=== PATIENT | female | born 1985 | race American Indian/Alaskan Native ===

== ENCOUNTER 2018-01-01 12:12 | Emergency (ER) | payer MEDICAID, OTHER ==
[2018-01-01] MEDS ORDERED: CATAPRES PO ONE (13:19)
--- NOTE | 2018-01-01 13:21 | Emergency Department Report ---
Blank Doc - Documentation Documentation: Patient is a 32-year-old female who took a tests 4 days ago was positive at home who is experiencing some vaginal spotting. Patient has some pressure sensation in his suprapubic region. Patient states bleeding is just at the level spotting and this been no clots present. Patient denies any fevers chills nausea vomiting at this time. Patient also has a history of hypertension and does not take meds at this time. Patient is denying shortness of breath chest pain headache or focal neurological deficit. Patient was given Catapres for blood pressure also have a beta Quant ultrasou and ABO Rh done. Nd
[2018-01-01 14:35] LABS: Bacteria,Urine 1+ /HPF (Negative); Bilirubin,Urine NEG (Negative); Blood,Urine LG (Negative); Color,Urine Yellow (Yellow); Mucus,Urine 3+ /HPF; Urobilinogen,Urine < 2.0 mg/dL (<2.0)
--- NOTE | 2018-01-01 17:25 | Emergency Department Report ---
ED Female HPI - General Chief complaint: Vaginal Bleeding Stated complaint: POSSIBLE MISCARRIAGE Time Seen by Provider: 01/01/18 12:40 Source: patient Mode of arrival: Ambulatory Limitations: No Limitations - History of Present Illness Initial comments: Patient is a 32-year-old female who took a tests 4 days ago was positive at home who is experiencing some vaginal spotting. Patient has some pressure sensation in his suprapubic region. Patient states bleeding is just at the level spotting and this been no clots present. Patient denies any fevers chills nausea vomiting at this time. Patient also has a history of hypertension and does not take meds at this time. Patient is denying shortness of breath chest pain or headache. Pain to lower abdomen as 7 out of 10 and pressure. Patient said that she calls my [facility] this morning and they told her to did not have an appointment until January. She says she had an episode of bleeding and this morning at 3 AM but since she has not seen any of the same bleeding in but when she wipes she sees small amount of blood on the paper. Her blood pressure is elevated at 192/118 and she has a history of high blood pressure and reports that she is on lisinopril and HCTZ. She did not take her medication and she reports that she is hungry to swear blood pressures is elevated. She denies any blurred vision, headache, nausea vomiting, dizziness, back pain. Denies being concerned for STD MD Complaint: vaginal bleeding, pelvic pain -: This morning Location: suprapubic Radiation: non-radiating Severity: severe Severity scale (0 -10): 7 Quality: cramping, other (pressure) Consistency: intermittent Improves with: none Worsens with: none Are you Now?: Yes Last Menstrual Period: 11/14/17 EDC: 08/21/18 Associated Symptoms: vaginal bleeding, abdominal pain, other (elevated blood pressure). denies: vaginal discharge, nausea/vomiting, fever/chills, headaches , loss of appetite, dysuria, hematuria, rash, seizure, shortness of breath, syncope, weakness - Related Data Sexually active: Yes : 6 Para: 2 A: 3 Previous Rx's Medication Instructions Recorded Last Taken Type Naproxen [Naprosyn] 500 mg PO BID #30 tablet 11/10/13 Unknown Rx methOCARBAMOL [Robaxin] 500 mg PO BID #30 tab 11/10/13 Unknown Rx traMADol [Ultram 50 MG tab] 50 mg PO Q6HR PRN #20 tablet 11/10/13 Unknown Rx Pnv95/Ferrous Fumarate/FA 1 each PO QDAY #30 tablet 12/09/14 Unknown Rx [ Vitamins] metroNIDAZOLE [Flagyl] 500 mg PO BID #14 tablet 12/09/14 Unknown Rx NIFEdipine XL [Procardia Xl] 60 mg PO QDAY 30 Days #30 tablet 01/01/18 Unknown Rx Vit,Calc76/Iron/Folic 1 each PO QDAY 30 Days #30 tablet 01/01/18 Unknown Rx [Pnv 29-1 Tablet] Allergies Allergy/AdvReac Type Severity Reaction Status Date / Time No Known Allergies Allergy Unverified 11/10/13 16:10 ED Review of Systems ROS: Stated complaint: POSSIBLE MISCARRIAGE Other details as noted in HPI Constitutional: denies: chills, fever Eyes: denies: eye pain, vision change ENT: denies: ear pain, throat pain, congestion Respiratory: denies: cough, shortness of breath, SOB with exertion, SOB at rest , stridor, wheezing Cardiovascular: denies: chest pain, palpitations, dyspnea on exertion, edema, syncope, paroxysmal nocturnal dyspnea Gastrointestinal: abdominal pain. denies: nausea, vomiting, diarrhea, constipation, hematemesis, melena, hematochezia Genitourinary: other (vaginal spotting). denies: urgency, dysuria, frequency, hematuria, discharge, dyspareunia Musculoskeletal: denies: back pain, joint swelling, arthralgia, myalgia Skin: denies: rash, lesions Neurological: denies: headache, weakness, numbness, paresthesias, confusion, abnormal gait, vertigo ED Past Medical Hx - Past Medical History Previous Medical History?: Yes Hx Hypertension: Yes - Surgical History Past Surgical History?: No - Family History Family history: hypertension - Social History Smoking Status: Current Every Day Smoker Substance Use Type: None - Medications Home Medications: Home Medications Medication Instructions Recorded Confirmed Last Taken Type Naproxen [Naprosyn] 500 mg PO BID #30 tablet 11/10/13 Unknown Rx methOCARBAMOL [Robaxin] 500 mg PO BID #30 tab 11/10/13 Unknown Rx traMADol [Ultram 50 MG tab] 50 mg PO Q6HR PRN #20 tablet 11/10/13 Unknown Rx Pnv95/Ferrous Fumarate/FA 1 each PO QDAY #30 tablet 12/09/14 Unknown Rx [ Vitamins] metroNIDAZOLE [Flagyl] 500 mg PO BID #14 tablet 12/09/14 Unknown Rx NIFEdipine XL [Procardia Xl] 60 mg PO QDAY 30 Days #30 tablet 01/01/18 Unknown Rx Vit,Calc76/Iron/Folic 1 each PO QDAY 30 Days #30 tablet 01/01/18 Unknown Rx [Pnv 29-1 Tablet] ED Physical Exam - General Limitations: No Limitations General appearance: alert, in no apparent distress - Head Head exam: Present: atraumatic, normocephalic, normal inspection, other (normal exam) - Eye Eye exam: Present: normal appearance, PERRL, EOMI. Absent: nystagmus Pupils: Present: normal accommodation - ENT ENT exam: Present: normal exam, normal orophraynx, mucous membranes moist, TM's normal bilaterally, normal external ear exam - Neck Neck exam: Present: normal inspection, full ROM, other (no C-spine tenderness and no bruit). Absent: tenderness, meningismus, lymphadenopathy - Respiratory Respiratory exam: Present: normal lung sounds bilaterally. Absent: respiratory distress, wheezes, chest wall tenderness, accessory muscle use - Cardiovascular Cardiovascular Exam: Present: regular rate, normal rhythm, normal heart sounds, other (blood pressure elevated at 192/118). Absent: systolic murmur, diastolic murmur - GI/Abdominal GI/Abdominal exam: Present: soft, normal bowel sounds. Absent: distended, tenderness, guarding, rebound, rigid, organomegaly, mass, bruit, pulsatile mass , hernia - Extremities Exam Extremities exam: Present: normal inspection, full ROM, normal capillary refill , other (no clubbing, cyanosis or edema. +2 pulses all extremities and no neurovascular compromise). Absent: tenderness, pedal edema, joint swelling, calf tenderness - Back Exam Back exam: Present: normal inspection, full ROM, other (ambulates without any difficulties). Absent: tenderness, CVA tenderness (R), CVA tenderness (L), muscle spasm, paraspinal tenderness, vertebral tenderness, rash noted - Neurological Exam Neurological exam: Present: alert, oriented X3, normal gait, reflexes normal. Absent: motor sensory deficit - Expanded Neurological Exam Expanded Neurological exam: Absent: innattentive, memory loss-remote event, memory loss- recent event, ataxia, receptive aphasia, expressive aphasia, total aphasia, tremor, protecting the airway Patient oriented to: Present: person, place, time Speech: Present: fluid speech Cranial nerves: EOM's Intact: Normal, Gag Reflex: Normal, Tongue Deviation: Normal, Nystagmus: Normal, Facial Sensation: Normal Cerebellar function: Romberg: Normal Upper motor neuron: Pronator Drift: Normal, Sensory Extinction: Normal Sensory exam: Upper Extremity Light Touch: Normal, Upper Extremity Temperature: Normal, UE 2 Point Discrimination: Normal, Lower Extremity Light Touch: Normal, Lower Extremity Temperature: Normal, LE 2 Point Discrimination: Normal Motor strength exam: RUE: 5, LUE: 5, RLE: 5, LLE: 5 Best Eye Response (Raymond): (4) open spontaneously Best Motor Response (Bg): (6) obeys commands Best Verbal Response (Bg): (5) oriented Bg Total: 15 - Psychiatric Psychiatric exam: Present: normal affect, normal mood - Skin Skin exam: Present: warm, dry, intact, normal color. Absent: rash ED Course Vital Signs 01/01/18 01/01/18 01/01/18 12:22 13:28 17:59 Temperature 98.4 F 98.4 F Pulse Rate 86 86 94 H Respiratory 16 20 Rate Blood Pressure 192/118 192/118 Blood Pressure 193/109 [Left] O2 Sat by Pulse 99 100 Oximetry Vital Signs 01/01/18 01/01/18 01/01/18 12:22 13:28 17:59 Temperature 98.4 F 98.4 F Pulse Rate 86 86 94 H Respiratory 16 20 Rate Blood Pressure 192/118 192/118 Blood Pressure 193/109 [Left] O2 Sat by Pulse 99 100 Oximetry 01/01/18 18:49 Temperature Pulse Rate Respiratory 18 Rate Blood Pressure Blood Pressure 184/96 [Left] O2 Sat by Pulse 99 Oximetry - Reevaluation(s) Reevaluation #1: 01/01/18 18:34 Patient received clonidine 0.2 mg emergency room her blood pressure is now better. No change in neurological status. I discussed her ultrasound with her ED Medical Decision Making - Radiology Data Radiology results: report reviewed Findings [facility] [address] [place] [address] Ultrasound Report Signed Patient: BRENDON CROWLEY MR#: [id number] : 1985 Acct:[id number] Age/Sex: 32 / F ADM Date: 01/01/18 Loc: ED Attending Dr: Ultrasound transvaginal and transabdominal less than 14 weeks OB FINAL REPORT EXAM: US OB TRANSVAGINAL HISTORY: preg with vag bleeding TECHNIQUE: Transabdominal and transvaginal sonography of the pelvis. PRIORS: None. FINDINGS: There is a single, intrauterine containing a yolk sac, but pole is not confidently identified at this time. Mean sac diameter is 11.1 mm corresponding to an ultrasound estimated gestational age of 5 weeks 6 days and ultrasound estimated date of delivery of 28 August 2018. Probable small, subchorionic hemorrhage incidentally noted. Remainder of uterus and adnexa are grossly unremarkable. IMPRESSION: 1. Intrauterine of uncertain viability. Correlation with serial beta-hCG levels and follow-up ultrasound may help in further evaluation. Transcribed By: [facility] Dictated By: KARMA PERDUE MD Electronically Authenticated By: KARMA PERDUE MD Signed Date/Time: 01/01/181751 DD/ 51 TD/TT: 01/01/181751 - Medical Decision Making ED course: Dr. Pendleton screen patient and wrote for clonidine for her blood pressure and patient was managed with Dr. Pendleton who I spoke with regarding her blood pressure and decided to change her to Procardia since she is . This is a 32-year-old female here reporting that she is been having vaginal bleeding since this morning in at 3 AM that has subsided now she is scan tomorrow will wipe. She said she had vaginal bleeding times one and then scan. Denies any clot. She is reporting pain to her lower abdomen that is pressure and crampy. Patient is 6 para 2, M1 2. Patient also has high blood pressure and has not taken her blood pressure medication this morning he was 192/118 in triage and she relates it to her being hungry. Patient is neurologically , Patient was seen and examined by myself. She had OB transabdominal pelvic and transvaginal less than 14 weeks which was dictated by radiologist and report shows Intrauterine of uncertain viability. Probably small subchorionic hemorrhage. Correlation with serial beta-hCG levels and follow-up ultrasound may help in further evaluation. Uterus and adnexa normal. . Positive quant UA showing that she has large blood and 1+ bacteria with no white cells. I will send urine culture. . This wasexplained to patient and she voiced understanding. I told I'll refer her to [facility] that she should call later to schedule an appointment if she cannot get in with my [facility]. I also told her that she needs to have a repeat ultrasound and hormone test in 3 days to return to the emergency room and she voiced understanding. Patient blood pressure elevated and she received clonidine 0.2 mg which her blood pressure is not better and we discussed switching her blood pressure medication from lisinopril HCTZ to Procardia XL as this is what she takes when she is .. A/P 1: Threatened miscarriage-patient referred to my [facility] and I told her to refrain from doing any strenuous activity including sexual activity. Patient will be started on vitamin . See ultrasound results above. Viable single intrauterine as described. Also with left ovarian cyst. 2-Vaginal bleeding-A she reports that this is very light and now only when she wipes. So better 3:abdominal cramping : Better. Patient with nontender abdomen 4: Patient with asymptomatic bacteriuria and she says she is not concerned for STD. Urine culture sent off. 5: Elevated blood pressure with history of hypertension.-Patient will be started on Procardia XL. She was given clonidine 0.2 mg and her blood pressure went down and I discussed with her that is very important that she takes her blood pressure medication as elevated blood pressure can cause her to have preeclampsia, eclampsia during and lead to heart attack, stroke or . I discussed that she needs to keep a log of her blood pressure and take along with her to her [facility] office for evaluation. Patient educated on and also threatened miscarriage. Educated on medication importance of taking vitamins and importance of care. Hypertension in , Educated on what signs and symptoms to look for in having a miscarriage and if she has any increase in her vaginal bleeding she is to return to the emergency room. Educated on increasing her fluid intake , she voiced understanding. Patient discharged home in stable condition with her family. Vital signs as stated she is a febrile. She is nontoxic in appearance. Referred to my [facility] to see on 01/04/2018. Discharge home a prescription for nasal vitamin and Procardia and to discontinue lisinopril HCTZ. Patient also to return on 05/2018 to emergency room for repeat ultrasound and hCG. - Differential Diagnosis ectopic , threatened miscarriage, UTI Critical care attestation.: If time is entered above; I have spent that time in minutes in the direct care of this critically ill patient, excluding procedure time. ED Disposition Clinical Impression: Threatened miscarriage in early , Abdominal pain during intrauterine , Elevated blood pressure reading with diagnosis of hypertension, Vaginal bleeding before 22 weeks gestation, Asymptomatic bacteriuria Disposition: DC- TO HOME OR SELFCARE Is pt being admited?: No Does the pt Need Aspirin: No Condition: Stable Instructions: Hypertension (ED), Threatened Miscarriage (ED), Abdominal Pain in (ED) Additional Instructions: Please follow up with your [facility] office in 3 days and if he cannot get in to OB /[facility] since his first visit he can also call [facility] to see if they have earlier appointment. Return to the emergency room on 12/30/2017 for repeat blood hormone tests and also ultrasound. If she experienced, increase in bleeding, abdominal pain, headache, shortness of breath, chest pain nausea vomiting, elevated blood pressure, dizziness. Physician please return to emergency room [facility] Please stop lisinopril and start Procardia XL Keep a log of your blood pressure and take to [facility] office visit for evaluation Prescriptions: NIFEdipine XL [Procardia Xl] 60 mg PO QDAY 30 Days #30 tablet Vit,Calc76/Iron/Folic [Pnv 29-1 Tablet] 1 each PO QDAY 30 Days #30 tablet Referrals: [facility] [Primary Care Provider] - 01/04/18 [facility] [Provider Group] - 01/04/18 [facility] [Provider Group] - 01/04/18 Forms: Work/School Release Form(ED)
--- NOTE | 2018-01-01 17:56 | Ultrasound Report ---
FINAL REPORT EXAM: US OB TRANSVAGINAL HISTORY: preg with vag bleeding TECHNIQUE: Transabdominal and transvaginal sonography of the pelvis. PRIORS: None. FINDINGS: There is a single, intrauterine containing a yolk sac, but pole is not confidently identified at this time. Mean sac diameter is 11.1 mm corresponding to an ultrasound estimated gestational age of 5 weeks 6 days and ultrasound estimated date of delivery of 28 August 2018. Probable small, subchorionic hemorrhage incidentally noted. Remainder of uterus and adnexa are grossly unremarkable. IMPRESSION: 1. Intrauterine of uncertain viability. Correlation with serial beta-hCG levels and follow-up ultrasound may help in further evaluation.
--- NOTE | 2018-01-01 17:57 | Ultrasound Report ---
FINAL REPORT EXAM: US OB < = 14 WEEKS FETUS HISTORY: preg with vag bleeding TECHNIQUE: Transabdominal and transvaginal sonography of the pelvis. PRIORS: None. FINDINGS: There is a single, intrauterine containing a yolk sac, but pole is not confidently identified at this time. Mean sac diameter is 11.1 mm corresponding to an ultrasound estimated gestational age of 5 weeks 6 days and ultrasound estimated date of delivery of 28 August 2018. Probable small, subchorionic hemorrhage incidentally noted. Remainder of uterus and adnexa are grossly unremarkable. IMPRESSION: 1. Intrauterine of uncertain viability. Correlation with serial beta-hCG levels and follow-up ultrasound may help in further evaluation.
[2018-01-01 18:51] VITALS: BP 184/96
== END 2018-01-01 19:08 | disposition home or self-care (01) ==
LOC: ED 12:12
DX: O20.0 Threatened abortion (principal); R82.71 Bacteriuria; I10 Essential (primary) hypertension; R10.9 Unspecified abdominal pain; F17.200 Nicotine dependence, unspecified, uncomplicated; Z3A.22 22 weeks gestation of pregnancy
CPT/HCPCS: 36415; 76801; 76817; 81001; 84702; 86900; 86901

== ENCOUNTER 2020-04-13 12:33 | Inpatient (IN) | payer OTHER ==
[2020-04-13 14:51] LABS: Hematocrit 32.7 % (30.3-42.9); Hemoglobin 10.7 gm/dl (10.1-14.3); Mean Corpuscular HGB Conc 33 % (30-34); Mean Corpuscular Volume 77 fl (79-97); Platelet Count 371 K/mm3 (140-440); Red Blood Count 4.23 M/mm3 (3.65-5.03); Red Cell Distribution Width 16.3 % (13.2-15.2)
[2020-04-13 14:58] LABS: Bilirubin,Urine NEG (Negative); Blood,Urine NEG (Negative); Color,Urine Yellow (Yellow); Mucus,Urine 2+ /HPF; Urobilinogen,Urine < 2.0 mg/dL (<2.0)
[2020-04-13 15:12] LABS: Alanine Aminotransferase 13 units/L (7-56)
[2020-04-13] MEDS ORDERED: MAGNESIUM SULFATE 4 GM/100 ML BAG IV ONE (17:22)
[2020-04-13] MEDS ORDERED: ACETAMINOPHEN 500 MG TAB PO PRN (17:25)
--- NOTE | 2020-04-13 17:54 | History and Physical Report ---
History of Present Illness Date of examination: 04/13/20 (Pt with elevated blood pressure at [facility] appointment) Date of admission: 04/13/2020 Chief complaint: Was sent from [facility] office by Dr. Sparks d/t elevated blood pressures. Her blood pressure ranges during [facility] visit were 150-160's/90's. History of present illness: Past History : 7 Term Births: 2 Premature Births: 0 Living Children: 2 Para: 2 Mult. Births: 0 Prev : 0 Prev. attempt? 0 Aborta: 1 Elect. Ab: 3 Spont. Ab: 1 # 1 Delivery date: 05/01/2006 Weeks Gestation: 37 labor: no Delivery type: Hours of labor: 10 Anesthesia type: epidural Delivery location: [facility] Sex: Male weight: [id number] Name: Cherry Comments: Induced secondary to hypertension and short # 2 Delivery date: 04/02 Delivery type: EAB # 3 Delivery date: 02/01/2010 Weeks Gestation: 40 Delivery type: Vaginal Hours of labor: 9 Anesthesia type: epidural Delivery location: [facility] Infant Sex: male weight: 7.50 Name: Lilo Comments: Meconium Past Medical History: Reviewed history from 08/27/2009 and no changes required: Asthma Hypertension Past Surgical History: Reviewed history from 08/27/2009 and no changes required: negative Past Medical History Anesthesia Complications: negative Anemia: negative Autoimmune Disorder: negative Bleeding Disorder: negative Blood Transfusions: negative Breast Disease: negative Diabetes: negative Heart Disease: negative Hypertension: positive, On Labetalol 100mg twice daily Hepatitis/Liver Disease: negative Kidney Disease/UTI: negative Neurologic/Epilepsy/Migraines: negative Phlebitis/Varicosities: negative Psychiatric: negative Pulmonary Disease/Asthma: negative Thyroid Disease: negative Hospitalizations: negative Surgery (Non-body component engineer): negative Abnormal PAP: negative PANKAJ Exposure: negative Infertility: negative Uterine Anomaly: negative Uterine Surgery (not C/S): negative Other Gynecologic Problems: negative Social Hx: Marital Status: Single Children: 2 Occupation: unemployed Infection History Hx of STD: none HIV Risk Eval: low risk Hepatitis B Risk Eval: low risk Personal hx. of genital herpes: no Partner hx. of genital herpes: no Rash, Viral, or Febrile illness since last LMP? no Varicella/Chicken Pox Status: Previous Disease TB Risk: no Genetic History ADVANCED MATERNAL AGE Congenital Heart Defect: Mom: no Dad: no Dannielle Disease: Mom: no Dad: no Thalassemia Mom: no Dad: no Neural Tube Defect Mom: no Dad: no Down's Syndrome Mom: no Dad: no Desean-Sachs Mom: no Dad: no Sickle Cell Disease/Trait Mom: no Dad: no Hemophilia Mom: no Dad: no Muscular Dystrophy Mom: no Dad: no Cystic Fibrosis Mom: no Dad: no Kerry Chorea Mom: no Dad: no Mental Retardation Mom: no Dad: no Fragile X Mom: no Dad: no Other Genetic/Chromosomal Disorder Mom: no Dad: no Child w/other defect Mom: no Dad: no Enviromental Exposures Xray Exposure: no Medication, drug, or alcohol use since LMP: no Chemical/Other Exposure: no Exposure to Cat Liter: no Hx of Parvovirus (Fifth Disease): no Occupational Exposure to Children: none Active Medications: LABETALOL HCL 100 MG ORAL TABLET (LABETALOL HCL) Current Allergies: * NKDA (Critical) Past History Past Medical History: asthma, hypertension Past Surgical History: no surgical history Family/Genetic History: none Social history: single - Obstetrical History Expected Date of Delivery: 05/27/20 Actual Gestation: 33 Week(s) 6 Day(s) : 7 Para: 2 Hx # Term Pregnancies: 2 Number of Pregnancies: 0 Spontaneous Abortions: 1 Induced : 3 Number of Living Children: 2 Medications and Allergies Allergies Allergy/AdvReac Type Severity Reaction Status Date / Time No Known Allergies Allergy Unverified 11/10/13 16:10 Home Medications Medication Instructions Recorded Confirmed Last Taken Type Naproxen [Naprosyn] 500 mg PO BID #30 tablet 11/10/13 Unknown Rx methOCARBAMOL [Robaxin] 500 mg PO BID #30 tab 11/10/13 Unknown Rx traMADoL [Ultram 50 MG tab] 50 mg PO Q6HR PRN #20 tablet 11/10/13 Unknown Rx Pnv95/Ferrous Fumarate/FA 1 each PO QDAY #30 tablet 12/09/14 Unknown Rx [ Vitamins] metroNIDAZOLE [Flagyl] 500 mg PO BID #14 tablet 12/09/14 Unknown Rx NIFEdipine XL [Procardia Xl] 60 mg PO QDAY 30 Days #30 tablet 01/01/18 Unknown Rx Vit,Calc76/Iron/Folic 1 each PO QDAY 30 Days #30 tablet 01/01/18 Unknown Rx [Pnv 29-1 Tablet] Active Meds: Active Medications Acetaminophen (Tylenol) 1,000 mg PO Q6H PRN PRN Reason: Pain, Mild (1-3) Betamethasone Acet/Betameth SodPhos (Celestone Soluspan) 12 mg IM Q24H BANG Stop: 04/14/20 22:01 Lactated Ringer's (Lactated Ringers) 1,000 mls @ 125 mls/hr IV DIRECT BANG Magnesium Sulfate (Magnesium Sulfate 40gm/1000ml) 40 gm in 1,000 mls @ 50 mls/hr IV DIRECT BANG Labetalol HCl (Labetalol) 100 mg PO BID BANG Review of Systems All systems: negative - Vital Signs Vital signs: Vital Signs Temp Pulse Resp BP 98.7 F 100 H 18 145/81 04/13/20 13:14 04/13/20 13:14 04/13/20 13:14 04/13/20 13:14 Temp Pulse Resp BP Pulse Ox 98.7 F 105 H 18 154/87 92 04/13/20 13:14 04/13/20 17:03 04/13/20 13:14 04/13/20 17:03 04/13/20 14:17 Pt with c/o a slight HICKS. Denies blurred vision, spots before her eyes, upper abdominal pain, shortness of breath, or chest pain. - Physical Exam Breasts: Positive: deferred Cardiovascular: Regular rate Lungs: Positive: Normal air movement Abdomen: Positive: normal appearance, soft Genitourinary (Female): Positive: normal external genitalia, normal perenium Vulva: both: normal Vagina: Positive: normal moisture Cervix: Negative: lesion, discharge Uterus: Positive: normal size, normal contour Adnexa: both: normal Anus/Rectum: Positive: normal perianal skin, heme negative. Negative: rectal mass, hemorrhoids Extremities: Positive: normal Deep Tendon Reflex Grade: Normal +2 - Obstetrical FHR: auscultation normal, category 1 Uterine Contraction Monitor Mode: External Uterine Contraction Pattern: Absent Uterine Tone Measurement Phase: Resting Results Result Diagrams: 04/13/20 14:33 04/13/20 14:33 Abnormal lab results 04/13/20 04/13/20 Range/Units 14:33 14:33 MCV 77 L (79-97) fl MCH 25 L (28-32) pg RDW 16.3 H (13.2-15.2) % Creatinine 0.3 L (0.6-1.2) mg/dL Lactate Dehydrogenase 307 H (91-180) units/L All other labs normal. GBS UNKNOWN HBsAg Screen Negative Negative *1 RPR Non Reactive Non Reactive *2 Rubella Antibodies, IgG 1.16 index Immune >0.99 *3 Non-immune <0.90 Equivocal 0.90 - 0.99 Immune >0.99 ABO Grouping B *4 Rh Factor Positive *5 Please note: Prior records for this patient's ABO / Rh type are not available for additional verification. Antibody Screen Negative Negative *6 WBC [H] 12.4 x10E3/uL 3.4-10.8 *7 RBC 5.05 x10E6/uL 3.77-5.28 *8 Hemoglobin 12.3 g/dL 11.1-15.9 *9 Hematocrit 39.8 % 34.0-46.6 *10 MCV 79 fL 79-97 *11 MCH [L] 24.4 pg 26.6-33.0 *12 MCHC [L] 30.9 g/dL 31.5-35.7 *13 RDW [H] 17.1 % 11.7-15.4 *14 Platelets [H] 470 x10E3/uL 150-450 *15 Neutrophils 67 % Not Estab. *16 Lymphs 24 % Not Estab. *17 Monocytes 7 % Not Estab. *18 Eos 2 % Not Estab. *19 Basos 0 % Not Estab. *20 ! Immature Cells <No Reported Value> *21 Neutrophils (Absolute) [H] 8.3 x10E3/uL 1.4-7.0 *22 Lymphs (Absolute) 3.0 x10E3/uL 0.7-3.1 *23 Monocytes(Absolute) 0.8 x10E3/uL 0.1-0.9 *24 Eos (Absolute) 0.2 x10E3/uL 0.0-0.4 *25 Baso (Absolute) 0.0 x10E3/uL 0.0-0.2 *26 ! Immature Granulocytes 0 % Not Estab. *27 ! Immature Grans (Abs) 0.0 x10E3/uL 0.0-0.1 *28 ! NRBC <No Reported Value> *29 Hematology Comments: <No Reported Value> *30 Tests: (2) Ct, Ng, Trich vag by ILEANA ([id number]) Chlamydia by ILEANA Negative Negative *31 Gonococcus by ILEANA Negative Negative *32 Trich vag by ILEANA Negative Negative *33 Tests: (3) HIV Ag/Ab with Reflex ([id number]) HIV Screen 4th Generation wRfx Non Reactive Non Reactive *34 Tests: (4) HCV Ab w/Rflx to Verification ([id number]) ! HCV Ab <0.1 s/co ratio 0.0-0.9 *35 Tests: (5) Comment: ([id number]) ! Comment: SPRCS *36 Non reactive HCV antibody screen is consistent with no HCV infection, unless recent infection is suspected or other evidence exists to indicate HCV infection. Tests: (6) Urine Culture, Routine ([id number]) Urine Culture, Routine Final report *37 Tests: (7) Result ([id number]) ! Result 1 No growth *38 Assessment and Plan Pt is a 34 y.o. @ 33.6 wks, sent from the [facility], By Dr. Sparks, office d/t blood pressures during visit ranging from 150-160's/90/s. Upon admission to triage her blood pressures ranged from 140's-160s/80-90's. Consulted with Dr. Chandler. Plan to admit to obs to collect a 24 hour urine, initiate magnesium sulfate, insert Ocrtez catheter to accurately watch urine output, increase PO Labetalol from 100mg to 200mg, continue to monitor blood pressures, and routine consult to [facility] to evaluate patient during hospital stay. Call placed to on-call [facility] answering service. - Patient Problems (1) Hypertension complicating in third trimester Onset Date: ~04/13/20 Current Visit: Yes Status: Acute Plan to address problem: Labetalol increased from 100mg to 200mg. Initiate magnesium sulfate. Continue to monitor blood pressures, intake and output. Routine consult to [facility] to come and evaluate pt during admission. (2) with 33 completed weeks gestation Onset Date: ~04/13/20 Current Visit: Yes Status: Acute Plan to address problem: Continue to monitor status through EFM.
[2020-04-13] MEDS ORDERED: MAGNESIUM SULFATE 40GM/1000ML 40 GM/1,000 ML BAG IV SCH (18:00)
[2020-04-13] MEDS: LACTATED RINGERS 1,000 ML IV SCH (20:00)
[2020-04-13] MEDS: BETAMET ACET/BETAMET NA PH 6 MG/ML INJ 5 ML MDV IM SCH (22:15)
[2020-04-14] MEDS ORDERED: diphenhydrAMINE 50 MG CAP PO PRN (00:42)
--- NOTE | 2020-04-14 09:23 | Progress Note ---
<SHANNAN TRIPLETT - Last Filed: 04/14/20 09:15> Assessment and Plan Pt resting No c/o HICKS, blurred vision, chest pain. Pt voices just being anxious @ being here. Reviewed POC Pt voices understanding and agreement with plan. Spoke with Dr Chamorro, he will see pt today. MGSO4 2gm/hr continues, 24hr urine collection complete @ 1700. BP 160-140/90-60, mild tachycardia 100-90, afebile. latest mag level 4.0. Lungs clear, non labored breathing. Will continue POC. Dr Joe aware of pt. Subjective - Subjective Date of service: 04/14/20 (pt "I just getting antsy.") Principal diagnosis: IUP 33w6d with PreE MGSO4 Collecting 24hr urine Patient reports: movement normal Objective - Vital Signs Vital Signs: Vital Signs - 12hr 04/13/20 04/13/20 04/13/20 21:32 22:02 22:15 Temperature Pulse Rate 88 93 H 93 H Respiratory Rate Blood Pressure 148/79 142/65 142/65 04/13/20 04/13/20 04/13/20 22:56 23:02 23:15 Temperature 98.3 F Pulse Rate 94 H 97 H Respiratory 18 Rate Blood Pressure 169/77 162/67 04/13/20 04/14/20 04/14/20 23:32 00:03 01:02 Temperature Pulse Rate 98 H 89 92 H Respiratory Rate Blood Pressure 145/71 141/78 139/78 04/14/20 04/14/20 04/14/20 01:15 01:32 02:02 Temperature Pulse Rate 97 H 90 Respiratory 18 Rate Blood Pressure 136/68 149/81 04/14/20 04/14/20 04/14/20 02:32 03:02 03:15 Temperature 98.3 F Pulse Rate 92 H 88 Respiratory 16 Rate Blood Pressure 144/67 161/79 04/14/20 04/14/20 04/14/20 03:32 04:04 04:32 Temperature Pulse Rate 90 97 H 100 H Respiratory Rate Blood Pressure 145/79 131/80 138/68 04/14/20 04/14/20 04/14/20 05:03 05:15 05:33 Temperature Pulse Rate 87 88 Respiratory 12 Rate Blood Pressure 144/79 167/78 04/14/20 04/14/2004/14/20 06:02 06:32 07:02 Temperature Pulse Rate 87 93 H 95 H Respiratory Rate Blood Pressure 134/70 126/59 132/62 04/14/20 04/14/20 04/14/20 07:32 08:02 08:32 Temperature Pulse Rate 102 H 99 H 97 H Respiratory Rate Blood Pressure 115/67 138/70 172/91 04/14/20 04/14/20 09:02 09:11 Temperature Pulse Rate 94 H 95 H Respiratory Rate Blood Pressure 181/87 153/85 - Exam Breasts: deferred Cardiovascular: Regular rate Lungs: Clear to auscultation Abdomen: Present: normal appearance, soft. Absent: distention, tenderness Uterus: Present: normal FHR: auscultation normal, category 1 (difficult tracing) Uterine Contraction Monitor Mode: External Uterine Contraction Pattern: Absent Uterine Tone Measurement Phase: Resting Extremities: edema Deep Tendon Reflex Grade: Normal but brisk +3 - Labs Labs: Abnormal Labs 04/13/20 04/13/20 04/13/20 14:33 14:33 18:42 MCV 77 L MCH 25 L RDW 16.3 H Creatinine 0.3 L Magnesium 2.80 H Lactate Dehydrogenase 307 H 04/14/20 04/14/20 00:27 05:38 MCV MCH RDW Creatinine Magnesium 3.50 H 4.00 H Lactate Dehydrogenase Laboratory Results - last 24 hr 04/13/20 04/13/20 04/13/20 14:33 14:33 18:42 WBC 10.5 RBC 4.23 Hgb 10.7 Hct 32.7 MCV 77 L MCH 25 L MCHC 33 RDW 16.3 H Plt Count 371 Creatinine 0.3 L Estimated GFR > 60 Uric Acid 4.0 Magnesium 2.80 H AST 22 ALT 13 Lactate Dehydrogenase 307 H Urine Color Urine Turbidity Urine pH Ur Specific [place] Urine Protein Urine Glucose (UA) Urine Ketones Urine Blood Urine Nitrite Urine Bilirubin Urine Urobilinogen Ur Leukocyte Esterase Urine WBC (Auto) Urine RBC (Auto) U Epithel Cells (Auto) Urine Mucus 04/13/20 04/14/20 04/14/20 Unknown 00:27 05:38 WBC RBC Hgb Hct MCV MCH MCHC RDW Plt Count Creatinine Estimated GFR Uric Acid Magnesium 3.50 H 4.00 H AST ALT Lactate Dehydrogenase Urine Color Yellow Urine Turbidity Clear Urine pH 6.0 Ur Specific [place] 1.023 Urine Protein 30 mg/dl Urine Glucose (UA) Neg Urine Ketones Neg Urine Blood Neg Urine Nitrite Neg Urine Bilirubin Neg Urine Urobilinogen < 2.0 Ur Leukocyte Esterase Neg Urine WBC (Auto) 3.0 Urine RBC (Auto) 1.0 U Epithel Cells (Auto) 3.0 Urine Mucus 2+ <BONNIEBRANNON D - Last Filed: 04/14/20 11:44> Assessment and Plan Resting in bed, no complaints. BP's much better. Plan of care discussed with patient and visit, will consider d/c home in am if she remains stable. She voiced understanding and agrees with plan of care Objective - Vital Signs Vital Signs: Vital Signs - 12hr 04/14/20 04/14/20 04/14/20 00:03 01:02 01:15 Temperature Pulse Rate 89 92 H Respiratory 18 Rate Blood Pressure 141/78 139/78 O2 Sat by Pulse Oximetry 04/14/20 04/14/20 04/14/20 01:32 02:02 02:32 Temperature Pulse Rate 97 H 90 92 H Respiratory Rate Blood Pressure 136/68 149/81 144/67 O2 Sat by Pulse Oximetry 04/14/20 04/14/20 04/14/20 03:02 03:15 03:32 Temperature 98.3 F Pulse Rate 88 90 Respiratory 16 Rate Blood Pressure 161/79 145/79 O2 Sat by Pulse Oximetry 04/14/20 04/14/20 04/14/20 04:04 04:32 05:03 Temperature Pulse Rate 97 H 100 H 87 Respiratory Rate Blood Pressure 131/80 138/68 144/79 O2 Sat by Pulse Oximetry 04/14/20 04/14/20 04/14/20 05:15 05:33 06:02 Temperature Pulse Rate 88 87 Respiratory 12 Rate Blood Pressure 167/78 134/70 O2 Sat by Pulse Oximetry 04/14/20 04/14/20 04/14/20 06:32 07:02 07:32 Temperature Pulse Rate 93 H 95 H 102 H Respiratory Rate Blood Pressure 126/59 132/62 115/67 O2 Sat by Pulse Oximetry 04/14/20 04/14/20 04/14/20 08:02 08:32 09:02 Temperature Pulse Rate 99 H 97 H 94 H Respiratory Rate Blood Pressure 138/70 172/91 181/87 O2 Sat by Pulse Oximetry 04/14/20 04/14/20 04/14/20 09:11 09:32 09:47 Temperature 98.2 F Pulse Rate 95 H 93 H Respiratory 14 Rate Blood Pressure 153/85 128/66 O2 Sat by Pulse Oximetry 04/14/20 04/14/20 04/14/20 09:51 09:54 10:02 Temperature Pulse Rate 95 H 95 H 96 H Respiratory Rate Blood Pressure 147/83 147/83 136/60 O2 Sat by Pulse Oximetry 04/14/20 04/14/20 04/14/20 10:32 10:55 10:56 Temperature Pulse Rate 96 H 97 H 58 L Respiratory Rate Blood Pressure 134/74 O2 Sat by Pulse 99 89 Oximetry 04/14/20 04/14/20 04/14/20 11:00 11:02 11:05 Temperature Pulse Rate 101 H 97 H 103 H Respiratory Rate Blood Pressure 138/82 O2 Sat by Pulse 99 100 Oximetry 04/14/20 04/14/20 04/14/20 11:10 11:15 11:20 Temperature Pulse Rate 98 H 98 H 99 H Respiratory Rate Blood Pressure O2 Sat by Pulse 97 98 97 Oximetry 04/14/20 04/14/20 04/14/20 11:25 11:30 11:32 Temperature Pulse Rate 96 H 90 92 H Respiratory Rate Blood Pressure 120/56 O2 Sat by Pulse 98 99 Oximetry 04/14/20 04/14/20 04/14/20 11:35 11:36 11:40 Temperature 98.2 F Pulse Rate 90 92 H Respiratory Rate Blood Pressure O2 Sat by Pulse 98 99 Oximetry - Labs Labs: Abnormal Labs 04/13/20 04/13/20 04/13/20 14:33 14:33 18:42 MCV 77 L MCH 25 L RDW 16.3 H Creatinine 0.3 L Magnesium 2.80 H Lactate Dehydrogenase 307 H 04/14/20 04/14/20 00:27 05:38 MCV MCH RDW Creatinine Magnesium 3.50 H 4.00 H Lactate Dehydrogenase Laboratory Results - last 24 hr 04/13/20 04/13/20 04/13/20 14:33 14:33 18:42 WBC 10.5 RBC 4.23 Hgb 10.7 Hct 32.7 MCV 77 L MCH 25 L MCHC 33 RDW 16.3 H Plt Count 371 Creatinine 0.3 L Estimated GFR > 60 Uric Acid 4.0 Magnesium 2.80 H AST 22 ALT 13 Lactate Dehydrogenase 307 H Urine Color Urine Turbidity Urine pH Ur Specific [place] Urine Protein Urine Glucose (UA) Urine Ketones Urine Blood Urine Nitrite Urine Bilirubin Urine Urobilinogen Ur Leukocyte Esterase Urine WBC (Auto) Urine RBC (Auto) U Epithel Cells (Auto) Urine Mucus 04/13/20 04/14/20 04/14/20 Unknown 00:27 05:38 WBC RBC Hgb Hct MCV MCH MCHC RDW Plt Count Creatinine Estimated GFR Uric Acid Magnesium 3.50 H 4.00 H AST ALT Lactate Dehydrogenase Urine Color Yellow Urine Turbidity Clear Urine pH 6.0 Ur Specific [place] 1.023 Urine Protein 30 mg/dl Urine Glucose (UA) Neg Urine Ketones Neg Urine Blood Neg Urine Nitrite Neg Urine Bilirubin Neg Urine Urobilinogen < 2.0 Ur Leukocyte Esterase Neg Urine WBC (Auto) 3.0 Urine RBC (Auto) 1.0 U Epithel Cells (Auto) 3.0 Urine Mucus 2+
[2020-04-14] MEDS: LACTATED RINGERS 1,000 ML IV SCH (09:43)
[2020-04-14] MEDS ORDERED: ZOLPIDEM 5 MG TAB PO PRN (18:31)
[2020-04-14 19:07] LABS: Creatinine,Urine 29.4 mg/dL (0.1-20.0)
[2020-04-14 19:11] LABS: Creatinine 24 Hour,Urine 1.8 (0.8-2.8)
[2020-04-14] MEDS: BETAMET ACET/BETAMET NA PH 6 MG/ML INJ 5 ML MDV IM SCH (22:11)
[2020-04-14] MEDS ORDERED: FAMOTIDINE 20 MG/2 ML INJ IV ONE (23:46)
--- NOTE | 2020-04-15 01:24 | Event Note ---
Date: 04/15/20 (TP 900 on 24hr urine) Pt w/o complaints. Ambulated in room most of the evening. NST reactive. BMZ completed @ 2200. Total protein 900 from 24hr urine. BP 160-130/80-60 Labetalol 200mg given @ 2200. Pt now in bed Requested her Ambien. Given
[2020-04-15] MEDS ORDERED: DEXMEDETOMIDINE 200 MCG/2 ML VIAL IV ONE (02:37)
--- NOTE | 2020-04-15 09:02 | Discharge Summary ---
Providers - Providers Date of Admission: 04/13/20 23:08 Date of discharge: 04/15/20 (Pt very excited to go home) Attending physician: ABY JEFFERSON 04/13/20 23:30 Consult to Physician [CONS] Routine Comment: Consulting Provider: BENOIT FLORES Physician Instructions: Pt known to practice. Reason For Exam: 33 wks continued elevated blood pressures, on meds Primary care physician: JULIAN OCONNELL Hospitalization Reason for admission: other (elevated BP; collect 24hr urine; BMZ) Hospital course: Patient sent from [facility] for BP control. 24 hr urine collected, TP 900. Patient received MGS0O4 x's 48 hrs and BMZ x's 2 doses. Started on labetalol 200 mg po BID. BP range 160-130/80-70, NST performed several times and all reactive. Condition at discharge: Good Disposition: DC-01 TO HOME OR SELFCARE - Discharge Diagnoses (1) Hypertension complicating in third trimester Status: Acute Comment: Follow up OB and NST Thursday04/18/2020 at 1415 [facility] appt Thursday04/20/2020 per patient Plan - Discharge Medications Prescriptions: labetaloL [Labetalol 200mg TAB] 200 mg PO BID #60 tablet - Provider Discharge Summary Activity: routine (Pelvic rest, no heavy lifting, walk outside 15-30 minutes every day.) Diet: other (Low sodium; 6-8 bottles of water per day) Instructions: routine Additional instructions: [] Smoking cessation referral if applicable(refer to patient education folder for contact #) [] Refer to [facility] Booklet Call your doctor immediately for: * Fever > 100.5 * Heavy vaginal bleeding ( >1 pad per hour) * Severe persistent headache * Shortness of breath * Reddened, hot, painful area to leg or breast * Drainage or odor from incision. * Keep incision clean and dry at all times and follow doctor's instructions regarding bathing/showering - Follow up plan Follow up: JULIAN OCONNELL MD [Primary Care Provider] - 04/18/20 2:15 pm (Please keep all appointments as scheduled. Monitor kick counts hydration, take medication as prescribed. Report any contractions, loss of fluid, vaginal bleeding. Call with headache, blurred vision, chest pain. Call with any concerns [phone]. )
[2020-04-15 09:33] VITALS: BP 158/85
--- NOTE | 2020-04-15 10:01 | Event Note ---
Date: 04/15/20 (pt discharged home) Discharge home approved by [facility] per previous note to D/c when stable and pressures controlled, With recommendation for IOL @ 37.0. IOL scheduled for 05/06/2020 @ 2030 with biweekly eval until delivery. Dr Joe made aware of Discharge and Plan of care.
== END 2020-04-15 10:15 | disposition home or self-care (01) | DRG 781 ==
LOC: TRG 12:33 → APU 12:35 → LD 18:19 → TRG 23:06 → LD 23:08
PROVIDERS: ADMIT Obstetrics & Gynecology; ATTEND Obstetrics & Gynecology
DX: O14.93 Unspecified pre-eclampsia, third trimester (principal); O99.513 Diseases of the respiratory system complicating pregnancy, third trimester; J45.909 Unspecified asthma, uncomplicated; Z3A.33 33 weeks gestation of pregnancy
CPT/HCPCS: 36415; 81001; 82565; 82570; 83615; 83735; 84156; 84450; 84460; 84550; 85027; G0378; J0702; J3475; J3490; J7120

== ENCOUNTER 2020-04-20 16:21 | Inpatient (IN) | payer OTHER ==
[2020-04-20] MEDS ORDERED: METOCLOPRAMIDE 10 MG/2 ML INJ IV ONE (16:51)
[2020-04-20] MEDS ORDERED: ePHEDrine SULFATE 50 MG/1 ML INJ IV PRN (16:51)
[2020-04-20] MEDS ORDERED: FAMOTIDINE 20 MG/2 ML INJ IV ONE (16:51)
[2020-04-20] MEDS ORDERED: CARBOPROST TROMETHAMINE 250 MCG/1 ML INJ IM PRN (16:51)
[2020-04-20] MEDS ORDERED: BICITRA ORAL LIQD 30ML PO ONE (16:51)
[2020-04-20] MEDS ORDERED: ACETAMINOPHEN 325 MG TAB PO PRN (16:51)
[2020-04-20] MEDS ORDERED: MINERAL OIL 30 ML ORAL LIQD PO PRN (16:51)
[2020-04-20] MEDS ORDERED: TERBUTALINE 1 MG/1 ML INJ SUB-Q PRN (16:51)
--- NOTE | 2020-04-20 16:51 | History and Physical Report ---
History of Present Illness Date of examination: 04/20/20 (I was told to come because my blood pressure is high) Date of admission: 04/20/2020 Chief complaint: I was told to come to the hospital because my blood pressure was high and i need a . I couldn't come right away because I had to take care of my other kids. Phone note from the office: 1956-Patient is calling to let us know she has not made it to the hospital yet because she has other children that she has to find care for. She is asking what she needs to do at this point. Pt# [phone]. ...................................................................Kenzie Ha April 20, 2020 2:19 PM 1415-Spoke with Dr. Chandler. Instructed patient needs to get to hospital as soon as she can because Labor and Deivery is waiting on her. Pt reports she is getting her kids situated and wants to know if she can come tomorrow. Informed her recommendation is that she arrive to L&D as soon as possible. She voiced understanding and states "it will be a few hours before I can get there" ...................................................................Kenzie Ha April 20, 2020 2:21 PM Follow-up for Phone Call Follow-up Details: Noted and it was stressed to pt the importance of delivery to prevent injury or to her or the baby due to severe preE. I did not have this direct discussion with the pt but this was stressed by MFM to pt several hours ago when recomendation was made for delive ry....................................................................Devika Chandler MD April 20, 2020 2:26 PM Follow-up by: Devika Chandler MD, April 20, 2020 2:26 PM History of present illness: Phone notes from the office: Spoke with Dr. Sparks regarding pt. At today's [facility] appointment pt had not taken her blood pressure medication and her blood pressure ranges were [phone]. She denies pre e s/sx. Per Dr. Sparks, if her blood pressures are normal or mild range then please rpt 24 hour urine. If the blood pressures are in the severe range, then patient is to be delivered. Also she has IUGR with AC in 3%. Overall growth 12 %. Dr. Sparks states that patient is aware that she must present to triage. Initial call taken by: Ju Melchor, April 20, 2020 11:00 AM Follow-up for Phone Call Follow-up Details: Update: Pt with total protein of >900. Pt is also in the breech presentation. Pt is to be delivered. Prepared for once she is admitted to the hospital. Pt aware. Dr. Chandler aware. Follow-Up Action: Phone Call Completed Follow-up by: Ju Melchor, April 20, 2020 11:56 AM Provider was advised of 900mg/24 of the urine protein. As per her recommendations : Delivery is recommended at 34 weeks in the setting of superimposed pre E and BPs in severe ranges in the office today. Pt is breech and was advised by Dr. Sparks that a c/s would be recommended. Pt expressed wanting to wait a week for delivery and it was advised that if she refuses/declines delivery at this time, she will need to remain in house until delivery. All my questions were addressed and answered. Labor and delivery madea aware of pt and plan of care at this time.....................................................................Devika Chandler MD April 20, 2020 12:01 PM Initial call taken by: Devika Chandler MD, April 20, 2020 12:01 PM Past History : 7 Term Births: 2 Premature Births: 0 Living Children: 2 Para: 2 Mult. Births: 0 Prev : 0 Prev. attempt? 0 Aborta: 1 Elect. Ab: 3 Spont. Ab: 1 # 1 Delivery date: 05/01/2006 Weeks Gestation: 37 labor: no Delivery type: Hours of labor: 10 Anesthesia type: epidural Delivery location: [facility] Sex: Male weight: [id number] Name: Cherry Comments: Induced secondary to hypertension and short # 2 Delivery date: 04/02 Delivery type: EAB # 3 Delivery date: 02/01/2010 Weeks Gestation: 40 Delivery type: Vaginal Hours of labor: 9 Anesthesia type: epidural Delivery location: [facility] Infant Sex: male weight: 7.50 Name: Lilo Comments: Meconium Past Medical History: Reviewed history from 08/27/2009 and no changes required: Asthma Hypertension Past Surgical History: Reviewed history from 08/27/2009 and no changes required: negative Past Medical History Anesthesia Complications: negative Anemia: negative Autoimmune Disorder: negative Bleeding Disorder: negative Blood Transfusions: negative Breast Disease: negative Diabetes: negative Heart Disease: negative Hypertension: positive, On Labetalol 100mg twice daily Hepatitis/Liver Disease: negative Kidney Disease/UTI: negative Neurologic/Epilepsy/Migraines: negative Phlebitis/Varicosities: negative Psychiatric: negative Pulmonary Disease/Asthma: negative Thyroid Disease: negative Hospitalizations: negative Surgery (Non-mule developer): negative Abnormal PAP: negative PANKAJ Exposure: negative Infertility: negative Uterine Anomaly: negative Uterine Surgery (not C/S): negative Other Gynecologic Problems: negative Social Hx: Marital Status: Single Children: 2 Occupation: unemployed Infection History Hx of STD: none HIV Risk Eval: low risk Hepatitis B Risk Eval: low risk Personal hx. of genital herpes: no Partner hx. of genital herpes: no Rash, Viral, or Febrile illness since last LMP? no Varicella/Chicken Pox Status: Previous Disease TB Risk: no Genetic History ADVANCED MATERNAL AGE Congenital Heart Defect: Mom: no Dad: no Dannielle Disease: Mom: no Dad: no Thalassemia Mom: no Dad: no Neural Tube Defect Mom: no Dad: no Down's Syndrome Mom: no Dad: no Desean-Sachs Mom: no Dad: no Sickle Cell Disease/Trait Mom: no Dad: no Hemophilia Mom: no Dad: no Muscular Dystrophy Mom: no Dad: no Cystic Fibrosis Mom: no Dad: no [place] Chorea Mom: no Dad: no Mental Retardation Mom: no Dad: no Fragile X Mom: no Dad: no Other Genetic/Chromosomal Disorder Mom: no Dad: no Child w/other defect Mom: no Dad: no Enviromental Exposures Xray Exposure: no Medication, drug, or alcohol use since LMP: no Chemical/Other Exposure: no Exposure to Cat Liter: no Hx of Parvovirus (Fifth Disease): no Occupational Exposure to Children: none Active Medications: LABETALOL HCL 100 MG ORAL TABLET (LABETALOL HCL) Current Allergies: * NKDA (Critical) Past History Past Medical History: asthma, hypertension Past Surgical History: no surgical history Family/Genetic History: none Social history: no significant social history - Obstetrical History Expected Date of Delivery: 05/27/20 Actual Gestation: 34 Week(s) 5 Day(s) : 7 Para: 2 Hx # Term Pregnancies: 2 Number of Pregnancies: 0 Spontaneous Abortions: 1 Induced : 3 Number of Living Children: 2 Medications and Allergies Allergies Allergy/AdvReac Type Severity Reaction Status Date / Time No Known Allergies Allergy Unverified 11/10/13 16:10 Home Medications Medication Instructions Recorded Confirmed Last Taken Type Vit,Calc76/Iron/Folic 1 each PO QDAY 30 Days #30 tablet 01/01/18 04/20/20 04/19/20 10:00 Rx [Pnv 29-1 Tablet] 1 labetaloL [Labetalol 200mg TAB] 200 mg PO BID #60 tablet 04/14/20 04/20/20 04/20/20 09:00 Rx Review of Systems All systems: negative - Vital Signs Vital signs: Pt denies HICKS, blurred vision, spots before her eyes, shortness of breath, chest pain, and upper abdominal pain. - Physical Exam Breasts: Positive: deferred Cardiovascular: Regular rate, Normal S1, Normal S2 Lungs: Positive: Normal air movement Abdomen: Positive: normal appearance, soft, normal bowel sounds. Negative: distention, tenderness Genitourinary (Female): Positive: normal external genitalia, normal perenium Vulva: both: normal Vagina: Positive: normal moisture. Negative: discharge Cervix: Negative: lesion, discharge Uterus: Positive: normal size, normal contour Adnexa: both: normal Anus/Rectum: Positive: normal perianal skin, heme negative. Negative: rectal mass, hemorrhoids Extremities: Positive: normal Deep Tendon Reflex Grade: Normal +2 - Obstetrical Uterine Contraction Monitor Mode: External Uterine Contraction Pattern: Absent Results Result Diagrams: 04/20/20 16:51 All other labs normal. GBS UNKNOWN HBsAg Screen Negative Negative *1 RPR Non Reactive Non Reactive *2 Rubella Antibodies, IgG 1.16 index Immune >0.99 *3 Non-immune <0.90 Equivocal 0.90 - 0.99 Immune >0.99 ABO Grouping B *4 Rh Factor Positive *5 Please note: Prior records for this patient's ABO / Rh type are not available for additional verification. Antibody Screen Negative Negative *6 WBC [H] 12.4 x10E3/uL 3.4-10.8 *7 RBC 5.05 x10E6/uL 3.77-5.28 *8 Hemoglobin 12.3 g/dL 11.1-15.9 *9 Hematocrit 39.8 % 34.0-46.6 *10 MCV 79 fL 79-97 *11 MCH [L] 24.4 pg 26.6-33.0 *12 MCHC [L] 30.9 g/dL 31.5-35.7 *13 RDW [H] 17.1 % 11.7-15.4 *14 Platelets [H] 470 x10E3/uL 150-450 *15 Neutrophils 67 % Not Estab. *16 Lymphs 24 % Not Estab. *17 Monocytes 7 % Not Estab. *18 Eos 2 % Not Estab. *19 Basos 0 % Not Estab. *20 ! Immature Cells <No Reported Value> *21 Neutrophils (Absolute) [H] 8.3 x10E3/uL 1.4-7.0 *22 Lymphs (Absolute) 3.0 x10E3/uL 0.7-3.1 *23 Monocytes(Absolute) 0.8 x10E3/uL 0.1-0.9 *24 Eos (Absolute) 0.2 x10E3/uL 0.0-0.4 *25 Baso (Absolute) 0.0 x10E3/uL 0.0-0.2 *26 ! Immature Granulocytes 0 % Not Estab. *27 ! Immature Grans (Abs) 0.0 x10E3/uL 0.0-0.1 *28 ! NRBC <No Reported Value> *29 Hematology Comments: <No Reported Value> *30 Tests: (2) Ct, Ng, Trich vag by ILEANA ([id number]) Chlamydia by ILEANA Negative Negative *31 Gonococcus by ILEANA Negative Negative *32 Trich vag by ILEANA Negative Negative *33 Tests: (3) HIV Ag/Ab with Reflex ([id number]) HIV Screen 4th Generation wRfx Non Reactive Non Reactive *34 Tests: (4) HCV Ab w/Rflx to Verification ([id number]) ! HCV Ab <0.1 s/co ratio 0.0-0.9 *35 Tests: (5) Comment: ([id number]) ! Comment: SPRCS *36 Non reactive HCV antibody screen is consistent with no HCV infection, unless recent infection is suspected or other evidence exists to indicate HCV infection. Tests: (6) Urine Culture, Routine ([id number]) Urine Culture, Routine Final report *37 Tests: (7) Result ([id number]) ! Result 1 No growth *38 Assessment and Plan 34 y.o. @ 34+ wks, with elevated blood pressures (150-160's/90-110's) at [facility] appointment and a previous total urine protein of > 900. Diagnosed with Pre eclampsia superimposed on chronic hypertension recommended for delivery @ 34 wks d/t breech presentation and pre eclampsia. Pt completed a course of steroids on 04/13. Will be admitted to L&D and prepped for c- section. Magnesium infusion for 24 hours after delivery. - Patient Problems (1) delivery indicated due to breech presentation Onset Date: ~04/20/20 Current Visit: Yes Status: Acute Plan to address problem: orders placed.front office manager and district director aware. (2) Pre-eclampsia superimposed on chronic hypertension Onset Date: ~04/20/20 Current Visit: Yes Status: Acute Plan to address problem: Plan for delivery d/t elevated blood pressures and total urine protein of >900. Magnesium sulfate infusion for 24 hours after delivery. Monitor blood pressures. (3) with 34 completed weeks gestation Onset Date: ~04/18/20 Current Visit: Yes Status: Acute Plan to address problem: EFM to monitor status. PLan for d/t breech presentation.
[2020-04-20] MEDS ORDERED: LACTATED RINGERS 1,000 ML IV SCH (17:00)
[2020-04-20] MEDS ORDERED: ceFAZolin/Water 2 GM/20 ML 2 GM/20 ML SYRINGE IV NR (17:00)
[2020-04-20] MEDS ORDERED: OXYTOCIN 20 UNIT/1000ML DRIP 20 UNITS/1,000 ML BAG IV SCH ×2 (17:00)
[2020-04-20 18:33] LABS: Hemoglobin 11.6 gm/dl (10.1-14.3); Mean Corpuscular HGB Conc 32 % (30-34); Mean Corpuscular Volume 77 fl (79-97); Platelet Count 392 K/mm3 (140-440); Red Blood Count 4.69 M/mm3 (3.65-5.03); Red Cell Distribution Width 16.6 % (13.2-15.2)
[2020-04-20 18:43] LABS: Bilirubin,Urine NEG (Negative); Blood,Urine NEG (Negative); Color,Urine Yellow (Yellow); Mucus,Urine 1+ /HPF
--- NOTE | 2020-04-20 18:52 | Event Note ---
Date: 04/20/20 Pt had full meal prior to coming to hospital and will need to wait 8hrs for c/s as per anesthesia team to be npo. Pt had no chaudhary and no blurry vision a this time. BP did elevate but was due to pt crying due to missing baby shower on tomorrow and expressed being nervous about c/s. I was at bedside for repeat sono and baby still footling breech. All risk, benefits and alternatives were d/w pt and questions were addressed and answered. Consents were signed and placed on the chart. If pt has stable blood pressures with plan to keep npo and do c/s in the am however, will deliver sooner if baby or mother because unstable. Will give labetalol evening dose now and con't to monitor bp closely. Magnesium will be started until delivery. Both charge nurse and pt updated on plan of care at this time and all expressed understanding. pt also desires BTL at time of delivery.
[2020-04-20] MEDS ORDERED: MAGNESIUM SULFATE 40GM/1000ML 40 GM/1,000 ML BAG IV ONE (18:53)
--- NOTE | 2020-04-20 19:04 | Ultrasound Report ---
US OB limited INDICATION / CLINICAL INFORMATION: position. COMPARISON: None available. FINDINGS: Limited study shows a single intrauterine in breech presentation. IMPRESSION: 1. Breech presentation. Signer Name: Chang Mock MD Signed: 04/20/2020 6:59 PM Workstation Name: [id number]
[2020-04-20] MEDS ORDERED: MAGNESIUM SULFATE 4 GM/100 ML BAG IV ONE (19:45)
[2020-04-20] MEDS: LACTATED RINGERS 1,000 ML IV SCH (19:54)
--- NOTE | 2020-04-20 19:57 | Event Note ---
Date: 04/20/20 RN made aware that provider did not the bolus as pt had magnesium on admission last week but that she will be on the drip of 1g/hr for now. This order is will be canceled.
--- NOTE | 2020-04-20 20:38 | Anesthesia Consultation ---
Anesthesia Consult and Med Hx Date of service: 04/20/20 - Airway Anesthetic Teeth Evaluation: Good ROM Head & Neck: Adequate Mental/Hyoid Distance: Adequate Mallampati Class: Class III Intubation Access Assessment: Possibly Difficult - Pulmonary Exam CTA: Yes - Cardiac Exam Cardiac Exam: RRR - Pre-Operative Health Status ASA Pre-Surgery Classification: ASA3 Proposed Anesthetic Plan: Epidural, Spinal - Pulmonary Hx Smoking: No Hx Asthma: Yes (last attack 1 year ago) COPD: No Hx Pneumonia: No Hx Sleep Apnea: No - Cardiovascular System Hx Hypertension: Yes - Central Nervous System Hx Seizures: No Hx Psychiatric Problems: No - Gastrointestinal Hx Gastroesophageal Reflux Disease: Yes - Endocrine Hx Renal Disease: No Hx End Stage Renal Disease: No Hx Hypothyroidism: No Hx Hyperthyroidism: No - Hematic Hx Anemia: Yes Hx Sickle Cell Disease: No - Other Systems Hx Alcohol Use: No Hx Obesity: Yes
[2020-04-20 20:42] LABS: Alanine Aminotransferase 13 units/L (7-56); Uric Acid 4.3 mg/dL (3.5-7.6)
--- NOTE | 2020-04-21 02:45 | Event Note ---
Date: 04/21/20 Pt with stabliization of blood pressures and no signs of HEELP via labs. C/s planned for later this am.
[2020-04-21] MEDS: LACTATED RINGERS 1,000 ML IV SCH ×2 (06:32→19:59)
--- NOTE | 2020-04-21 07:21 | Progress Note ---
Assessment and Plan - Patient Problems (1) Unstable lie Current Visit: Yes Status: Acute Qualifiers: Fetus number: single or unspecified fetus Qualified Code(s): O32.0XX0 - Maternal care for unstable lie, not applicable or unspecified Plan to address problem: -was breech and now vtx by sono. -will proceed with IOl at this time but advised pt that if baby should become breech again or transverse, she would again need a . Pt and support person expressed understanding and questions were addressed and answered. (2) Pre-eclampsia superimposed on chronic hypertension Onset Date: ~04/20/20 Current Visit: Yes Status: Acute Plan to address problem: -will proceed with pitocin IOL at this time. -nutrition technician providers aware of change in plan of care. (3) with 34 completed weeks gestation Onset Date: ~04/18/20 Current Visit: Yes Status: Acute (4) Hypertension complicating in third trimester Onset Date: ~04/13/20 Current Visit: No Status: Acute Subjective - Subjective Date of service: 04/21/20 Principal diagnosis: 34 weeks 1)CHTN 2)superimposed pre E 3)IUGR 4)Obeseity Interval history: Pt requested a repeat sono as she felt more movement and felt baby was not head down. Sono this am confirms that baby is now vtx. Pt advised that now she can have a DUC but that due to the small size of the baby and her having poly, baby could flip back to breech as it was on yesterday. pt expressed understanding. Will allow pt to have clears liquid diet and start pitocin at this time. Charge nurse aware of update to pt status and no need for c/s at this time. Objective - Vital Signs Vital Signs: Vital Signs - 12hr 04/20/20 04/20/20 04/20/20 19:25 19:55 20:00 Temperature 98.7 F Pulse Rate 97 H 98 H 95 H Respiratory 18 Rate Blood Pressure Blood Pressure 159/100 [Right] O2 Sat by Pulse 98 98 Oximetry 04/20/20 04/20/20 04/20/20 20:03 20:05 20:10 Temperature Pulse Rate 91 H 99 H 101 H Respiratory Rate Blood Pressure 155/87 Blood Pressure [Right] O2 Sat by Pulse 99 99 Oximetry 04/20/20 04/20/20 04/20/20 20:14 20:15 20:19 Temperature Pulse Rate 101 H 107 H 91 H Respiratory Rate Blood Pressure 155/87 149/86 Blood Pressure [Right] O2 Sat by Pulse 99 Oximetry 04/20/20 04/20/20 04/20/20 20:20 20:25 20:27 Temperature Pulse Rate 94 H 107 H 75 Respiratory Rate Blood Pressure Blood Pressure [Right] O2 Sat by Pulse 97 98 84 Oximetry 04/20/20 04/20/20 04/20/20 20:30 20:34 20:35 Temperature Pulse Rate 94 H 104 H 100 H Respiratory Rate Blood Pressure 158/106 Blood Pressure [Right] O2 Sat by Pulse 99 97 Oximetry 04/20/20 04/20/20 04/20/20 20:40 20:45 20:48 Temperature Pulse Rate 93 H 97 H 99 H Respiratory Rate Blood Pressure 159/100 Blood Pressure [Right] O2 Sat by Pulse 98 98 Oximetry 04/20/20 04/20/20 04/20/20 20:50 20:51 20:55 Temperature Pulse Rate 98 H 98 H 93 H Respiratory Rate Blood Pressure 160/96 Blood Pressure [Right] O2 Sat by Pulse 98 98 Oximetry 04/20/20 04/20/20 04/20/20 21:00 21:04 21:05 Temperature Pulse Rate 100 H 98 H 98 H Respiratory Rate Blood Pressure 143/74 Blood Pressure [Right] O2 Sat by Pulse 98 97 Oximetry 04/20/20 04/20/20 04/20/20 21:10 21:15 21:18 Temperature Pulse Rate 101 H 95 H 103 H Respiratory Rate Blood Pressure 143/81 Blood Pressure [Right] O2 Sat by Pulse 99 99 Oximetry 04/20/20 04/20/20 04/20/20 21:20 21:25 21:30 Temperature Pulse Rate 92 H 93 H 102 H Respiratory Rate Blood Pressure Blood Pressure [Right] O2 Sat by Pulse 97 97 99 Oximetry 04/20/20 04/20/20 04/20/20 21:33 21:35 21:40 Temperature Pulse Rate 93 H 105 H 95 H Respiratory Rate Blood Pressure 124/89 Blood Pressure [Right] O2 Sat by Pulse 98 99 Oximetry 04/20/20 04/20/20 04/20/20 21:45 21:48 21:50 Temperature Pulse Rate 97 H 100 H 101 H Respiratory Rate Blood Pressure 117/71 Blood Pressure [Right] O2 Sat by Pulse 99 97 Oximetry 04/20/20 04/20/20 04/20/20 21:55 22:00 22:03 Temperature Pulse Rate 95 H 92 H 98 H Respiratory Rate Blood Pressure 127/68 Blood Pressure [Right] O2 Sat by Pulse 97 98 Oximetry 04/20/20 04/20/20 04/20/20 22:05 22:10 22:15 Temperature Pulse Rate 92 H 94 H 93 H Respiratory Rate Blood Pressure Blood Pressure [Right] O2 Sat by Pulse 99 98 99 Oximetry 04/20/20 04/20/20 04/20/20 22:18 22:20 22:25 Temperature Pulse Rate 90 96 H 87 Respiratory Rate Blood Pressure 147/71 Blood Pressure [Right] O2 Sat by Pulse 99 99 Oximetry 04/20/20 04/20/20 04/20/20 22:30 22:33 22:35 Temperature Pulse Rate 93 H 88 92 H Respiratory Rate Blood Pressure 137/65 Blood Pressure [Right] O2 Sat by Pulse 98 99 Oximetry 04/20/20 04/20/20 04/20/20 22:40 22:45 22:49 Temperature Pulse Rate 94 H 92 H 85 Respiratory Rate Blood Pressure 134/72 Blood Pressure [Right] O2 Sat by Pulse 97 97 Oximetry 04/20/20 04/20/20 04/20/20 22:50 22:55 23:00 Temperature Pulse Rate 92 H 88 90 Respiratory Rate Blood Pressure Blood Pressure [Right] O2 Sat by Pulse 99 97 97 Oximetry 04/20/20 04/20/20 04/20/20 23:03 23:05 23:10 Temperature Pulse Rate 91 H 88 91 H Respiratory Rate Blood Pressure 155/78 Blood Pressure [Right] O2 Sat by Pulse 99 99 Oximetry 04/20/20 04/20/20 04/20/20 23:15 23:19 23:20 Temperature Pulse Rate 98 H 85 94 H Respiratory Rate Blood Pressure 142/76 Blood Pressure [Right] O2 Sat by Pulse 99 99 Oximetry 04/20/20 04/20/20 04/20/20 23:25 23:29 23:30 Temperature Pulse Rate 98 H 100 H 100 H Respiratory Rate Blood Pressure Blood Pressure [Right] O2 Sat by Pulse 98 93 99 Oximetry 04/20/20 04/20/20 04/20/20 23:33 23:34 23:35 Temperature Pulse Rate 92 H 91 H 90 Respiratory Rate Blood Pressure 153/84 Blood Pressure [Right] O2 Sat by Pulse 93 96 Oximetry 04/20/20 04/20/20 04/20/20 23:40 23:45 23:48 Temperature Pulse Rate 89 90 91 H Respiratory Rate Blood Pressure 166/88 Blood Pressure [Right] O2 Sat by Pulse 98 97 Oximetry 04/20/20 04/20/20 04/20/20 23:49 23:50 23:55 Temperature Pulse Rate 96 H 88 97 H Respiratory Rate Blood Pressure Blood Pressure [Right] O2 Sat by Pulse 94 97 99 Oximetry 04/21/20 04/21/20 04/21/20 00:00 00:04 00:05 Temperature Pulse Rate 101 H 99 H 95 H Respiratory Rate Blood Pressure 137/75 Blood Pressure [Right] O2 Sat by Pulse 98 98 Oximetry 04/21/20 04/21/20 04/21/20 00:10 00:15 00:18 Temperature Pulse Rate 92 H 90 99 H Respiratory Rate Blood Pressure 142/78 Blood Pressure [Right] O2 Sat by Pulse 99 98 Oximetry 04/21/20 04/21/20 04/21/20 00:20 00:25 00:30 Temperature Pulse Rate 87 84 88 Respiratory Rate Blood Pressure Blood Pressure [Right] O2 Sat by Pulse 97 100 98 Oximetry 04/21/20 04/21/20 04/21/20 00:33 00:35 00:40 Temperature Pulse Rate 90 89 86 Respiratory Rate Blood Pressure 149/69 Blood Pressure [Right] O2 Sat by Pulse 98 97 Oximetry 04/21/20 04/21/20 04/21/20 00:45 00:50 00:55 Temperature Pulse Rate 87 84 92 H Respiratory Rate Blood Pressure Blood Pressure [Right] O2 Sat by Pulse 98 99 98 Oximetry 04/21/20 04/21/20 04/21/20 01:00 01:05 01:10 Temperature Pulse Rate 91 H 90 90 Respiratory Rate Blood Pressure Blood Pressure [Right] O2 Sat by Pulse 99 99 98 Oximetry 04/21/20 04/21/20 04/21/20 01:15 01:18 01:20 Temperature Pulse Rate 85 86 89 Respiratory Rate Blood Pressure 137/81 Blood Pressure [Right] O2 Sat by Pulse 95 97 Oximetry 04/21/20 04/21/20 04/21/20 01:25 01:30 01:33 Temperature Pulse Rate 83 86 83 Respiratory Rate Blood Pressure 113/65 Blood Pressure [Right] O2 Sat by Pulse 99 97 Oximetry 04/21/20 04/21/20 04/21/20 01:35 01:40 01:45 Temperature Pulse Rate 84 85 84 Respiratory Rate Blood Pressure Blood Pressure [Right] O2 Sat by Pulse 97 97 96 Oximetry 04/21/20 04/21/20 04/21/20 01:48 01:50 01:55 Temperature Pulse Rate 82 85 88 Respiratory Rate Blood Pressure 121/61 Blood Pressure [Right] O2 Sat by Pulse 96 97 Oximetry 04/21/20 04/21/20 04/21/20 02:00 02:04 02:05 Temperature Pulse Rate 84 83 82 Respiratory Rate Blood Pressure 134/64 Blood Pressure [Right] O2 Sat by Pulse 97 98 Oximetry 04/21/20 04/21/20 04/21/20 02:10 02:15 02:18 Temperature Pulse Rate 83 88 101 H Respiratory Rate Blood Pressure 131/64 Blood Pressure [Right] O2 Sat by Pulse 99 96 Oximetry 04/21/20 04/21/20 04/21/20 02:20 02:25 02:30 Temperature Pulse Rate 83 85 82 Respiratory Rate Blood Pressure Blood Pressure [Right] O2 Sat by Pulse 98 96 98 Oximetry 04/21/20 04/21/20 04/21/20 02:33 02:35 02:40 Temperature Pulse Rate 89 84 93 H Respiratory Rate Blood Pressure 116/64 Blood Pressure [Right] O2 Sat by Pulse 99 97 Oximetry 04/21/20 04/21/20 04/21/20 02:45 02:49 02:50 Temperature Pulse Rate 94 H 83 89 Respiratory Rate Blood Pressure 147/87 Blood Pressure [Right] O2 Sat by Pulse 100 98 Oximetry 04/21/20 04/21/20 04/21/20 02:55 03:00 03:03 Temperature Pulse Rate 89 92 H 85 Respiratory Rate Blood Pressure 152/79 Blood Pressure [Right] O2 Sat by Pulse 97 99 Oximetry 04/21/20 04/21/20 04/21/20 03:05 03:10 03:15 Temperature Pulse Rate 88 103 H 88 Respiratory Rate Blood Pressure Blood Pressure [Right] O2 Sat by Pulse 96 99 97 Oximetry 04/21/20 04/21/20 04/21/20 03:18 03:20 03:25 Temperature Pulse Rate 83 89 88 Respiratory Rate Blood Pressure 150/80 Blood Pressure [Right] O2 Sat by Pulse 97 97 Oximetry 04/21/20 04/21/20 04/21/20 03:30 03:33 03:35 Temperature Pulse Rate 85 90 88 Respiratory Rate Blood Pressure 146/84 Blood Pressure [Right] O2 Sat by Pulse 98 99 Oximetry 04/21/20 04/21/20 04/21/20 03:40 03:45 03:48 Temperature Pulse Rate 86 99 H 82 Respiratory Rate Blood Pressure 154/81 Blood Pressure [Right] O2 Sat by Pulse 98 96 Oximetry 04/21/20 04/21/20 04/21/20 03:50 03:55 04:00 Temperature Pulse Rate 90 85 91 H Respiratory Rate Blood Pressure Blood Pressure [Right] O2 Sat by Pulse 100 98 98 Oximetry 04/21/20 04/21/20 04/21/20 04:03 04:05 04:10 Temperature Pulse Rate 84 92 H 84 Respiratory Rate Blood Pressure 152/83 Blood Pressure [Right] O2 Sat by Pulse 94 100 100 Oximetry 04/21/20 04/21/20 04/21/20 04:15 04:18 04:20 Temperature Pulse Rate 89 87 90 Respiratory Rate Blood Pressure 159/83 Blood Pressure [Right] O2 Sat by Pulse 96 96 Oximetry 04/21/20 04/21/20 04/21/20 04:25 04:30 04:33 Temperature Pulse Rate 89 92 H 86 Respiratory Rate Blood Pressure 155/85 Blood Pressure [Right] O2 Sat by Pulse 96 95 Oximetry 04/21/20 04/21/20 04/21/20 04:35 04:40 04:45 Temperature Pulse Rate 98 H 88 90 Respiratory Rate Blood Pressure Blood Pressure [Right] O2 Sat by Pulse 100 96 95 Oximetry 04/21/20 04/21/20 04/21/20 04:48 04:50 04:55 Temperature Pulse Rate 83 95 H 88 Respiratory Rate Blood Pressure 165/83 Blood Pressure [Right] O2 Sat by Pulse 99 96 Oximetry 04/21/20 04/21/20 04/21/20 05:00 05:03 05:05 Temperature Pulse Rate 85 94 H 88 Respiratory Rate Blood Pressure 157/84 Blood Pressure [Right] O2 Sat by Pulse 97 96 Oximetry 04/21/20 04/21/20 04/21/20 05:10 05:15 05:18 Temperature Pulse Rate 95 H 93 H 101 H Respiratory Rate Blood Pressure Blood Pressure [Right] O2 Sat by Pulse 97 97 94 Oximetry 04/21/20 04/21/20 04/21/20 05:19 05:20 05:25 Temperature Pulse Rate 85 89 85 Respiratory Rate Blood Pressure 136/76 Blood Pressure [Right] O2 Sat by Pulse 97 99 Oximetry 04/21/20 04/21/20 04/21/20 05:30 05:33 05:35 Temperature Pulse Rate 90 93 H 90 Respiratory Rate Blood Pressure 147/76 Blood Pressure [Right] O2 Sat by Pulse 97 98 Oximetry 04/21/20 04/21/20 04/21/20 05:40 05:45 05:48 Temperature Pulse Rate 91 H 106 H 82 Respiratory Rate Blood Pressure 155/79 Blood Pressure [Right] O2 Sat by Pulse 99 99 Oximetry 04/21/20 04/21/20 04/21/20 05:50 05:55 06:00 Temperature Pulse Rate 87 99 H 87 Respiratory Rate Blood Pressure Blood Pressure [Right] O2 Sat by Pulse 97 100 97 Oximetry 04/21/20 04/21/20 04/21/20 06:03 06:05 06:10 Temperature Pulse Rate 85 88 89 Respiratory Rate Blood Pressure 157/83 Blood Pressure [Right] O2 Sat by Pulse 96 96 Oximetry 04/21/20 04/21/20 04/21/20 06:15 06:18 06:20 Temperature Pulse Rate 83 90 88 Respiratory Rate Blood Pressure 159/92 Blood Pressure [Right] O2 Sat by Pulse 97 97 Oximetry 04/21/20 04/21/20 04/21/20 06:22 06:25 06:30 Temperature Pulse Rate 105 H 87 87 Respiratory Rate Blood Pressure Blood Pressure [Right] O2 Sat by Pulse 93 98 98 Oximetry 04/21/20 04/21/20 04/21/20 06:33 06:35 06:40 Temperature Pulse Rate 86 91 H 86 Respiratory Rate Blood Pressure 160/91 Blood Pressure [Right] O2 Sat by Pulse 99 98 Oximetry 04/21/20 04/21/20 04/21/20 06:45 06:50 06:55 Temperature Pulse Rate 87 77 92 H Respiratory Rate Blood Pressure 180/78 Blood Pressure [Right] O2 Sat by Pulse 98 98 99 Oximetry 04/21/20 04/21/20 04/21/20 07:00 07:05 07:10 Temperature Pulse Rate 88 88 101 H Respiratory Rate Blood Pressure 164/92 Blood Pressure [Right] O2 Sat by Pulse 100 98 99 Oximetry 04/21/20 07:15 Temperature Pulse Rate 87 Respiratory Rate Blood Pressure Blood Pressure [Right] O2 Sat by Pulse 100 Oximetry - Exam FHR: category 1 Cervical Dilatation: 1.5 (presenting part barely palpted but feels firm and geri) Cervical Effacement Percentage: 50 station: -3 Uterine Contraction Pattern: Absent Uterine Tone Measurement Phase: Resting Extremities: tenderness Deep Tendon Reflex Grade: Normal +2 - Labs Labs: Abnormal Labs 04/20/20 04/20/20 04/21/20 16:51 16:51 00:08 MCV 77 L MCH 25 L RDW 16.6 H Creatinine 0.4 L Magnesium 2.60 H Lactate Dehydrogenase 214 H 04/21/20 05:44 MCV MCH RDW Creatinine Magnesium 2.70 H Lactate Dehydrogenase Laboratory Results - last 24 hr 04/20/20 04/20/20 04/20/20 16:51 16:51 16:51 WBC 9.7 RBC 4.69 Hgb 11.6 Hct 36.0 MCV 77 L MCH 25 L MCHC 32 RDW 16.6 H Plt Count 392 Creatinine 0.4 L Estimated GFR > 60 Uric Acid 4.3 Magnesium AST 13 ALT 13 Lactate Dehydrogenase 214 H Urine Color Urine Turbidity Urine pH Ur Specific [place] Urine Protein Urine Glucose (UA) Urine Ketones Urine Blood Urine Nitrite Urine Bilirubin Urine Urobilinogen Ur Leukocyte Esterase Urine WBC (Auto) Urine RBC (Auto) U Epithel Cells (Auto) Urine Mucus Syphilis IgG Antibody Nonreactive Blood Type Antibody Screen 04/20/20 04/20/20 04/21/20 16:51 17:21 00:08 WBC RBC Hgb Hct MCV MCH MCHC RDW Plt Count Creatinine Estimated GFR Uric Acid Magnesium 2.60 H AST ALT Lactate Dehydrogenase Urine Color Yellow Urine Turbidity Clear Urine pH 6.0 Ur Specific [place] 1.023 Urine Protein 30 mg/dl Urine Glucose (UA) Neg Urine Ketones Neg Urine Blood Neg Urine Nitrite Neg Urine Bilirubin Neg Urine Urobilinogen 2.0 Ur Leukocyte Esterase Neg Urine WBC (Auto) 4.0 Urine RBC (Auto) 3.0 U Epithel Cells (Auto) 1.0 Urine Mucus 1+ Syphilis IgG Antibody Blood Type B POSITIVE Antibody Screen Negative 04/21/20 05:44 WBC RBC Hgb Hct MCV MCH MCHC RDW Plt Count Creatinine Estimated GFR Uric Acid Magnesium 2.70 H AST ALT Lactate Dehydrogenase Urine Color Urine Turbidity Urine pH Ur Specific [place] Urine Protein Urine Glucose (UA) Urine Ketones Urine Blood Urine Nitrite Urine Bilirubin Urine Urobilinogen Ur Leukocyte Esterase Urine WBC (Auto) Urine RBC (Auto) U Epithel Cells (Auto) Urine Mucus Syphilis IgG Antibody Blood Type Antibody Screen
--- NOTE | 2020-04-21 07:23 | Ultrasound Report ---
US OB limited INDICATION: presentation. TECHNIQUE: Transabdominal OB ultrasound COMPARISON: None available. FINDINGS: presentation is cephalic. heart rate measures 1 44 bpm. Signer Name: Trace Storm MD Signed: 04/21/2020 7:19 AM Workstation Name: [id number]
[2020-04-21] MEDS ORDERED: AMPICILLIN/NS 2 GM/100 ML 2 GM/100 ML BAG IV ONE (08:00)
[2020-04-21] MEDS ORDERED: OXYTOCIN DRIP 30 UNITS/500 ML BAG IV SCH (08:00)
--- NOTE | 2020-04-21 10:43 | Progress Note ---
Assessment and Plan IUP @ 34.5 wks, SVE 1/50/-3/posterior/ medium. CHTN with superimposed Pre-E, Asymmetric IUGR. Magnesium @ 1g/hr. Labetalol 200mg PO BID. no c/o or concerns at this time. [place] Cooks Catheter placed. Pt tolerated well. Low dose Pit until cooks cath comes out, then Pitocin per policy. Continue labor management and anticipate vaginal delivery. NICU consult ordered. Dr. Antoine updated on pt status. - Patient Problems (1) Pre-eclampsia superimposed on chronic hypertension Onset Date: ~04/20/20 Current Visit: Yes Status: Acute Plan to address problem: Magnesium Sulfate until 24hrs post delivery continue Labetalol PO continue monitoring for signs of worsening Pre-E. (2) with 34 completed weeks gestation Onset Date: ~04/18/20 Current Visit: Yes Status: Acute Plan to address problem: NICU consult ordered (3) Unstable lie Current Visit: Yes Status: Acute Qualifiers: Fetus number: single or unspecified fetus Qualified Code(s): O32.0XX0 - Maternal care for unstable lie, not applicable or unspecified Plan to address problem: will continue to assess for presentation and recheck with ultrasound if needed Subjective - Subjective Date of service: 04/21/20 Principal diagnosis: 34 weeks 1)CHTN 2)superimposed pre E 3)IUGR 4)Obeseity Patient reports: movement normal Objective - Vital Signs Vital Signs: Vital Signs - 12hr 04/20/20 04/20/20 04/20/20 22:35 22:40 22:45 Temperature Pulse Rate 92 H 94 H 92 H Respiratory Rate Blood Pressure Blood Pressure [Right] O2 Sat by Pulse 99 97 97 Oximetry 04/20/20 04/20/20 04/20/20 22:49 22:50 22:55 Temperature Pulse Rate 85 92 H 88 Respiratory Rate Blood Pressure 134/72 Blood Pressure [Right] O2 Sat by Pulse 99 97 Oximetry 04/20/20 04/20/20 04/20/20 23:00 23:03 23:05 Temperature Pulse Rate 90 91 H 88 Respiratory Rate Blood Pressure 155/78 Blood Pressure [Right] O2 Sat by Pulse 97 99 Oximetry 04/20/20 04/20/20 04/20/20 23:10 23:15 23:19 Temperature Pulse Rate 91 H 98 H 85 Respiratory Rate Blood Pressure 142/76 Blood Pressure [Right] O2 Sat by Pulse 99 99 Oximetry 04/20/20 04/20/20 04/20/20 23:20 23:25 23:29 Temperature Pulse Rate 94 H 98 H 100 H Respiratory Rate Blood Pressure Blood Pressure [Right] O2 Sat by Pulse 99 98 93 Oximetry 04/20/20 04/20/20 04/20/20 23:30 23:33 23:34 Temperature Pulse Rate 100 H 92 H 91 H Respiratory Rate Blood Pressure 153/84 Blood Pressure [Right] O2 Sat by Pulse 99 93 Oximetry 04/20/20 04/20/20 04/20/20 23:35 23:40 23:45 Temperature Pulse Rate 90 89 90 Respiratory Rate Blood Pressure Blood Pressure [Right] O2 Sat by Pulse 96 98 97 Oximetry 04/20/20 04/20/20 04/20/20 23:48 23:49 23:50 Temperature Pulse Rate 91 H 96 H 88 Respiratory Rate Blood Pressure 166/88 Blood Pressure [Right] O2 Sat by Pulse 94 97 Oximetry 04/20/20 04/21/20 04/21/20 23:55 00:00 00:04 Temperature Pulse Rate 97 H 101 H 99 H Respiratory Rate Blood Pressure 137/75 Blood Pressure [Right] O2 Sat by Pulse 99 98 Oximetry 04/21/20 04/21/20 04/21/20 00:05 00:10 00:15 Temperature Pulse Rate 95 H 92 H 90 Respiratory Rate Blood Pressure Blood Pressure [Right] O2 Sat by Pulse 98 99 98 Oximetry 04/21/20 04/21/20 04/21/20 00:18 00:20 00:25 Temperature Pulse Rate 99 H 87 84 Respiratory Rate Blood Pressure 142/78 Blood Pressure [Right] O2 Sat by Pulse 97 100 Oximetry 04/21/20 04/21/20 04/21/20 00:30 00:33 00:35 Temperature Pulse Rate 88 90 89 Respiratory Rate Blood Pressure 149/69 Blood Pressure [Right] O2 Sat by Pulse 98 98 Oximetry 04/21/20 04/21/20 04/21/20 00:40 00:45 00:50 Temperature Pulse Rate 86 87 84 Respiratory Rate Blood Pressure Blood Pressure [Right] O2 Sat by Pulse 97 98 99 Oximetry 04/21/20 04/21/20 04/21/20 00:55 01:00 01:05 Temperature Pulse Rate 92 H 91 H 90 Respiratory Rate Blood Pressure Blood Pressure [Right] O2 Sat by Pulse 98 99 99 Oximetry 04/21/20 04/21/20 04/21/20 01:10 01:15 01:18 Temperature Pulse Rate 90 85 86 Respiratory Rate Blood Pressure 137/81 Blood Pressure [Right] O2 Sat by Pulse 98 95 Oximetry 04/21/20 04/21/20 04/21/20 01:20 01:25 01:30 Temperature Pulse Rate 89 83 86 Respiratory Rate Blood Pressure Blood Pressure [Right] O2 Sat by Pulse 97 99 97 Oximetry 04/21/20 04/21/20 04/21/20 01:33 01:35 01:40 Temperature Pulse Rate 83 84 85 Respiratory Rate Blood Pressure 113/65 Blood Pressure [Right] O2 Sat by Pulse 97 97 Oximetry 04/21/20 04/21/20 04/21/20 01:45 01:48 01:50 Temperature Pulse Rate 84 82 85 Respiratory Rate Blood Pressure 121/61 Blood Pressure [Right] O2 Sat by Pulse 96 96 Oximetry 04/21/20 04/21/20 04/21/20 01:55 02:00 02:04 Temperature Pulse Rate 88 84 83 Respiratory Rate Blood Pressure 134/64 Blood Pressure [Right] O2 Sat by Pulse 97 97 Oximetry 04/21/20 04/21/20 04/21/20 02:05 02:10 02:15 Temperature Pulse Rate 82 83 88 Respiratory Rate Blood Pressure Blood Pressure [Right] O2 Sat by Pulse 98 99 96 Oximetry 04/21/20 04/21/20 04/21/20 02:18 02:20 02:25 Temperature Pulse Rate 101 H 83 85 Respiratory Rate Blood Pressure 131/64 Blood Pressure [Right] O2 Sat by Pulse 98 96 Oximetry 04/21/20 04/21/20 04/21/20 02:30 02:33 02:35 Temperature Pulse Rate 82 89 84 Respiratory Rate Blood Pressure 116/64 Blood Pressure [Right] O2 Sat by Pulse 98 99 Oximetry 04/21/20 04/21/20 04/21/20 02:40 02:45 02:49 Temperature Pulse Rate 93 H 94 H 83 Respiratory Rate Blood Pressure 147/87 Blood Pressure [Right] O2 Sat by Pulse 97 100 Oximetry 04/21/20 04/21/20 04/21/20 02:50 02:55 03:00 Temperature Pulse Rate 89 89 92 H Respiratory Rate Blood Pressure Blood Pressure [Right] O2 Sat by Pulse 98 97 99 Oximetry 04/21/20 04/21/20 04/21/20 03:03 03:05 03:10 Temperature Pulse Rate 85 88 103 H Respiratory Rate Blood Pressure 152/79 Blood Pressure [Right] O2 Sat by Pulse 96 99 Oximetry 04/21/20 04/21/20 04/21/20 03:15 03:18 03:20 Temperature Pulse Rate 88 83 89 Respiratory Rate Blood Pressure 150/80 Blood Pressure [Right] O2 Sat by Pulse 97 97 Oximetry 04/21/20 04/21/20 04/21/20 03:25 03:30 03:33 Temperature Pulse Rate 88 85 90 Respiratory Rate Blood Pressure 146/84 Blood Pressure [Right] O2 Sat by Pulse 97 98 Oximetry 04/21/20 04/21/20 04/21/20 03:35 03:40 03:45 Temperature Pulse Rate 88 86 99 H Respiratory Rate Blood Pressure Blood Pressure [Right] O2 Sat by Pulse 99 98 96 Oximetry 04/21/20 04/21/20 04/21/20 03:48 03:50 03:55 Temperature Pulse Rate 82 90 85 Respiratory Rate Blood Pressure 154/81 Blood Pressure [Right] O2 Sat by Pulse 100 98 Oximetry 04/21/20 04/21/20 04/21/20 04:00 04:03 04:05 Temperature Pulse Rate 91 H 84 92 H Respiratory Rate Blood Pressure 152/83 Blood Pressure [Right] O2 Sat by Pulse 98 94 100 Oximetry 04/21/20 04/21/20 04/21/20 04:10 04:15 04:18 Temperature Pulse Rate 84 89 87 Respiratory Rate Blood Pressure 159/83 Blood Pressure [Right] O2 Sat by Pulse 100 96 Oximetry 04/21/20 04/21/20 04/21/20 04:20 04:25 04:30 Temperature Pulse Rate 90 89 92 H Respiratory Rate Blood Pressure Blood Pressure [Right] O2 Sat by Pulse 96 96 95 Oximetry 04/21/20 04/21/20 04/21/20 04:33 04:35 04:40 Temperature Pulse Rate 86 98 H 88 Respiratory Rate Blood Pressure 155/85 Blood Pressure [Right] O2 Sat by Pulse 100 96 Oximetry 04/21/20 04/21/20 04/21/20 04:45 04:48 04:50 Temperature Pulse Rate 90 83 95 H Respiratory Rate Blood Pressure 165/83 Blood Pressure [Right] O2 Sat by Pulse 95 99 Oximetry 04/21/20 04/21/20 04/21/20 04:55 05:00 05:03 Temperature Pulse Rate 88 85 94 H Respiratory Rate Blood Pressure 157/84 Blood Pressure [Right] O2 Sat by Pulse 96 97 Oximetry 04/21/20 04/21/20 04/21/20 05:05 05:10 05:15 Temperature Pulse Rate 88 95 H 93 H Respiratory Rate Blood Pressure Blood Pressure [Right] O2 Sat by Pulse 96 97 97 Oximetry 04/21/20 04/21/20 04/21/20 05:18 05:19 05:20 Temperature Pulse Rate 101 H 85 89 Respiratory Rate Blood Pressure 136/76 Blood Pressure [Right] O2 Sat by Pulse 94 97 Oximetry 04/21/20 04/21/20 04/21/20 05:25 05:30 05:33 Temperature Pulse Rate 85 90 93 H Respiratory Rate Blood Pressure 147/76 Blood Pressure [Right] O2 Sat by Pulse 99 97 Oximetry 04/21/20 04/21/20 04/21/20 05:35 05:40 05:45 Temperature Pulse Rate 90 91 H 106 H Respiratory Rate Blood Pressure Blood Pressure [Right] O2 Sat by Pulse 98 99 99 Oximetry 04/21/20 04/21/20 04/21/20 05:48 05:50 05:55 Temperature Pulse Rate 82 87 99 H Respiratory Rate Blood Pressure 155/79 Blood Pressure [Right] O2 Sat by Pulse 97 100 Oximetry 04/21/20 04/21/20 04/21/20 06:00 06:03 06:05 Temperature Pulse Rate 87 85 88 Respiratory Rate Blood Pressure 157/83 Blood Pressure [Right] O2 Sat by Pulse 97 96 Oximetry 04/21/20 04/21/20 04/21/20 06:10 06:15 06:18 Temperature Pulse Rate 89 83 90 Respiratory Rate Blood Pressure 159/92 Blood Pressure [Right] O2 Sat by Pulse 96 97 Oximetry 04/21/20 04/21/20 04/21/20 06:20 06:22 06:25 Temperature Pulse Rate 88 105 H 87 Respiratory Rate Blood Pressure Blood Pressure [Right] O2 Sat by Pulse 97 93 98 Oximetry 04/21/20 04/21/20 04/21/20 06:30 06:33 06:35 Temperature Pulse Rate 87 86 91 H Respiratory Rate Blood Pressure 160/91 Blood Pressure [Right] O2 Sat by Pulse 98 99 Oximetry 04/21/20 04/21/20 04/21/20 06:40 06:45 06:50 Temperature Pulse Rate 86 87 77 Respiratory Rate Blood Pressure 180/78 Blood Pressure [Right] O2 Sat by Pulse 98 98 98 Oximetry 04/21/20 04/21/20 04/21/20 06:55 07:00 07:05 Temperature Pulse Rate 92 H 88 88 Respiratory Rate Blood Pressure 164/92 Blood Pressure [Right] O2 Sat by Pulse 99 100 98 Oximetry 04/21/20 04/21/20 04/21/20 07:10 07:15 07:19 Temperature Pulse Rate 101 H 87 88 Respiratory Rate Blood Pressure 151/81 Blood Pressure [Right] O2 Sat by Pulse 99 100 94 Oximetry 04/21/20 04/21/20 04/21/20 07:20 07:25 07:30 Temperature Pulse Rate 89 86 88 Respiratory Rate Blood Pressure Blood Pressure [Right] O2 Sat by Pulse 98 99 99 Oximetry 04/21/20 04/21/20 04/21/20 07:34 07:35 07:37 Temperature Pulse Rate 95 H 94 H 85 Respiratory Rate Blood Pressure 184/89 151/73 Blood Pressure [Right] O2 Sat by Pulse 100 Oximetry 04/21/20 04/21/20 04/21/20 07:38 07:40 07:45 Temperature 98.3 F Pulse Rate 91 H 95 H 91 H Respiratory 18 Rate Blood Pressure Blood Pressure 162/89 [Right] O2 Sat by Pulse 100 100 98 Oximetry 04/21/20 04/21/20 04/21/20 07:49 07:50 07:55 Temperature Pulse Rate 89 95 H 91 H Respiratory Rate Blood Pressure 162/89 Blood Pressure [Right] O2 Sat by Pulse 98 99 Oximetry 04/21/20 04/21/20 04/21/20 08:00 08:03 08:05 Temperature Pulse Rate 97 H 94 H 87 Respiratory Rate Blood Pressure 147/76 Blood Pressure [Right] O2 Sat by Pulse 98 99 Oximetry 04/21/20 04/21/20 04/21/20 08:10 08:15 08:19 Temperature Pulse Rate 95 H 89 90 Respiratory Rate Blood Pressure 143/84 Blood Pressure [Right] O2 Sat by Pulse 98 97 Oximetry 04/21/20 04/21/20 04/21/20 08:20 08:25 08:30 Temperature Pulse Rate 90 89 92 H Respiratory Rate Blood Pressure Blood Pressure [Right] O2 Sat by Pulse 97 97 94 Oximetry 04/21/20 04/21/20 04/21/20 08:33 08:35 08:40 Temperature Pulse Rate 83 92 H 87 Respiratory Rate Blood Pressure 148/81 Blood Pressure [Right] O2 Sat by Pulse 98 97 Oximetry 04/21/20 04/21/20 04/21/20 08:45 08:48 08:50 Temperature Pulse Rate 89 85 88 Respiratory Rate Blood Pressure 151/76 Blood Pressure [Right] O2 Sat by Pulse 97 97 Oximetry 04/21/20 04/21/20 04/21/20 08:55 09:00 09:03 Temperature Pulse Rate 111 H 95 H 85 Respiratory Rate Blood Pressure 150/73 Blood Pressure [Right] O2 Sat by Pulse 99 98 Oximetry 04/21/20 04/21/20 04/21/20 09:05 09:10 09:15 Temperature Pulse Rate 101 H 87 106 H Respiratory Rate Blood Pressure Blood Pressure [Right] O2 Sat by Pulse 98 95 94 Oximetry 04/21/20 04/21/20 04/21/20 09:16 09:18 09:20 Temperature Pulse Rate 108 H 90 93 H Respiratory Rate Blood Pressure 134/67 Blood Pressure [Right] O2 Sat by Pulse 94 99 Oximetry 04/21/20 04/21/20 04/21/20 09:25 09:30 09:35 Temperature Pulse Rate 94 H 93 H 90 Respiratory Rate Blood Pressure Blood Pressure [Right] O2 Sat by Pulse 97 100 98 Oximetry 04/21/20 04/21/20 04/21/20 09:36 09:40 09:45 Temperature 98.0 F Pulse Rate 94 H 90 Respiratory Rate Blood Pressure Blood Pressure [Right] O2 Sat by Pulse 98 99 Oximetry 04/21/20 04/21/20 04/21/20 09:50 09:54 09:55 Temperature Pulse Rate 93 H 88 97 H Respiratory Rate Blood Pressure 193/106 Blood Pressure [Right] O2 Sat by Pulse 99 99 Oximetry 04/21/20 04/21/20 04/21/20 09:56 10:00 10:05 Temperature Pulse Rate 93 H 92 H 86 Respiratory Rate Blood Pressure 164/76 Blood Pressure [Right] O2 Sat by Pulse 99 99 Oximetry 04/21/20 04/21/20 04/21/20 10:10 10:15 10:20 Temperature Pulse Rate 90 90 95 H Respiratory Rate Blood Pressure Blood Pressure [Right] O2 Sat by Pulse 99 100 100 Oximetry 04/21/20 04/21/20 04/21/20 10:24 10:25 10:30 Temperature Pulse Rate 93 H 99 H 88 Respiratory Rate Blood Pressure 180/78 Blood Pressure [Right] O2 Sat by Pulse 99 99 Oximetry - Exam Breasts: normal Cardiovascular: Regular rate Lungs: Clear to auscultation Abdomen: Present: normal appearance, soft Vulva: both: normal Uterus: Present: normal FHR: auscultation normal Uterine Contraction Monitor Mode: External Cervical Dilatation: 1 Cervical Effacement Percentage: 50 station: -3 Uterine Contraction Pattern: Irregular Extremities: edema Deep Tendon Reflex Grade: Normal +2 - Labs Labs: Abnormal Labs 04/20/20 04/20/20 04/21/20 16:51 16:51 00:08 MCV 77 L MCH 25 L RDW 16.6 H Creatinine 0.4 L Magnesium 2.60 H Lactate Dehydrogenase 214 H 04/21/20 05:44 MCV MCH RDW Creatinine Magnesium 2.70 H Lactate Dehydrogenase Laboratory Results - last 24 hr 04/20/20 04/20/20 04/20/20 16:51 16:51 16:51 WBC 9.7 RBC 4.69 Hgb 11.6 Hct 36.0 MCV 77 L MCH 25 L MCHC 32 RDW 16.6 H Plt Count 392 Creatinine 0.4 L Estimated GFR > 60 Uric Acid 4.3 Magnesium AST 13 ALT 13 Lactate Dehydrogenase 214 H Urine Color Urine Turbidity Urine pH Ur Specific Britt Urine Protein Urine Glucose (UA) Urine Ketones Urine Blood Urine Nitrite Urine Bilirubin Urine Urobilinogen Ur Leukocyte Esterase Urine WBC (Auto) Urine RBC (Auto) U Epithel Cells (Auto) Urine Mucus Syphilis IgG Antibody Nonreactive Blood Type Antibody Screen 04/20/20 04/20/20 04/21/20 16:51 17:21 00:08 WBC RBC Hgb Hct MCV MCH MCHC RDW Plt Count Creatinine Estimated GFR Uric Acid Magnesium 2.60 H AST ALT Lactate Dehydrogenase Urine Color Yellow Urine Turbidity Clear Urine pH 6.0 Ur Specific Britt 1.023 Urine Protein 30 mg/dl Urine Glucose (UA) Neg Urine Ketones Neg Urine Blood Neg Urine Nitrite Neg Urine Bilirubin Neg Urine Urobilinogen 2.0 Ur Leukocyte Esterase Neg Urine WBC (Auto) 4.0 Urine RBC (Auto) 3.0 U Epithel Cells (Auto) 1.0 Urine Mucus 1+ Syphilis IgG Antibody Blood Type B POSITIVE Antibody Screen Negative 04/21/20 05:44 WBC RBC Hgb Hct MCV MCH MCHC RDW Plt Count Creatinine Estimated GFR Uric Acid Magnesium 2.70 H AST ALT Lactate Dehydrogenase Urine Color Urine Turbidity Urine pH Ur Specific Britt Urine Protein Urine Glucose (UA) Urine Ketones Urine Blood Urine Nitrite Urine Bilirubin Urine Urobilinogen Ur Leukocyte Esterase Urine WBC (Auto) Urine RBC (Auto) U Epithel Cells (Auto) Urine Mucus Syphilis IgG Antibody Blood Type Antibody Screen
[2020-04-21] MEDS ORDERED: AMPICILLIN/NS 2 GM/100 ML 2 GM/100 ML BAG IV SCH (13:00)
--- NOTE | 2020-04-21 14:09 | Consultation ---
Consult Note - Parent Education I met with parent(s) and discussed the following:: Need for NICU admission, Temp erature regulation, Importance of providing breast milk & encouraged pumping aft delivery Parent(s) demonstrated understanding of all the information:: Yes Additional Comment: I explained that baby will be monitored for temp regulation and feeding vigor in NICU. Mother had no questions/concerns. Assessment and Plan - Assessment Gestation:: 34 (34 weeks 6 days) Baby's gender: Female - Plan Plan: Will attend delivery Please call NICU with questions
[2020-04-21] MEDS ORDERED: fentaNYL 100 MCG/2 ML INJ ONE ×2 (14:49→23:20)
[2020-04-21] MEDS ORDERED: fentaNYL 100 MCG/2 ML INJ IV ONE (14:52)
--- NOTE | 2020-04-21 21:33 | Event Note ---
Date: 04/21/20 hugh
--- NOTE | 2020-04-21 21:39 | Progress Note ---
Assessment and Plan cooks balloon fell out approx 30 minutes ago, pt is now 4-5cms/BBOW, no presenting part felt in pelvis. u/s confirmed breech presentation. Discussed with patient need for operative d/t malpresentation. Pt agrees with plan and verbalizes understanding. CN, NICU and paloma notified. Dr. Antoine made aware of change in condition and is in route to hospital for c/s. - Patient Problems (1) Pre-eclampsia superimposed on chronic hypertension Onset Date: ~04/20/20 Current Visit: Yes Status: Acute Plan to address problem: Magnesium Sulfate until 24hrs post delivery continue Labetalol PO continue monitoring for signs of worsening Pre-E. (2) with 34 completed weeks gestation Onset Date: ~04/18/20 Current Visit: Yes Status: Acute (3) Unstable lie Current Visit: Yes Status: Acute Qualifiers: Fetus number: single or unspecified fetus Qualified Code(s): O32.0XX0 - Maternal care for unstable lie, not applicable or unspecified Plan to address problem: pt is now breech, prepping patient for c/s Subjective - Subjective Date of service: 04/21/20 Principal diagnosis: 34 weeks 1)CHTN 2)superimposed pre E 3)IUGR 4)Obeseity Patient reports: contractions Objective - Vital Signs Vital Signs: Vital Signs - 12hr 04/21/20 04/21/20 04/21/20 09:36 09:40 09:45 Temperature 98.0 F Pulse Rate 94 H 90 Respiratory Rate Blood Pressure Blood Pressure [Right] O2 Sat by Pulse 98 99 Oximetry 04/21/20 04/21/20 04/21/20 09:50 09:54 09:55 Temperature Pulse Rate 93 H 88 97 H Respiratory Rate Blood Pressure 193/106 Blood Pressure [Right] O2 Sat by Pulse 99 99 Oximetry 04/21/20 04/21/20 04/21/20 09:56 10:00 10:05 Temperature Pulse Rate 93 H 92 H 86 Respiratory Rate Blood Pressure 164/76 Blood Pressure [Right] O2 Sat by Pulse 99 99 Oximetry 04/21/20 04/21/20 04/21/20 10:10 10:15 10:20 Temperature Pulse Rate 90 90 95 H Respiratory Rate Blood Pressure Blood Pressure [Right] O2 Sat by Pulse 99 100 100 Oximetry 04/21/20 04/21/2020 10:24 10:25 10:30 Temperature Pulse Rate 93 H 99 H 80 Respiratory Rate Blood Pressure 180/78 180/78 Blood Pressure [Right] O2 Sat by Pulse 99 99 Oximetry 04/21/20 04/21/20 04/21/20 10:35 10:40 10:45 Temperature Pulse Rate 91 H 84 83 Respiratory Rate Blood Pressure Blood Pressure [Right] O2 Sat by Pulse 99 99 99 Oximetry 04/21/20 04/21/20 04/21/20 10:47 10:50 10:53 Temperature Pulse Rate 89 97 H 87 Respiratory Rate Blood Pressure 180/78 174/86 Blood Pressure [Right] O2 Sat by Pulse 98 Oximetry 04/21/20 04/21/20 04/21/20 10:55 11:00 11:05 Temperature Pulse Rate 95 H 86 88 Respiratory 20 Rate Blood Pressure Blood Pressure [Right] O2 Sat by Pulse 98 99 97 Oximetry 04/21/20 04/21/20 04/21/20 11:10 11:15 11:20 Temperature Pulse Rate 94 H 86 86 Respiratory Rate Blood Pressure Blood Pressure [Right] O2 Sat by Pulse 97 98 98 Oximetry 04/21/20 04/21/20 04/21/20 11:23 11:25 11:30 Temperature Pulse Rate 87 89 89 Respiratory Rate Blood Pressure 177/85 Blood Pressure [Right] O2 Sat by Pulse 94 96 97 Oximetry 04/21/20 04/21/20 04/21/20 11:35 11:40 11:45 Temperature Pulse Rate 98 H 93 H 100 H Respiratory Rate Blood Pressure Blood Pressure [Right] O2 Sat by Pulse 99 98 98 Oximetry 04/21/20 04/21/20 04/21/20 11:50 11:53 11:55 Temperature Pulse Rate 85 86 86 Respiratory Rate Blood Pressure 193/92 Blood Pressure [Right] O2 Sat by Pulse 99 98 Oximetry 04/21/20 04/21/20 04/21/20 12:00 12:05 12:10 Temperature Pulse Rate 86 86 88 Respiratory Rate Blood Pressure Blood Pressure [Right] O2 Sat by Pulse 99 98 100 Oximetry 04/21/20 04/21/20 04/21/20 12:15 12:20 12:23 Temperature Pulse Rate 94 H 95 H 97 H Respiratory Rate Blood Pressure 159/69 Blood Pressure [Right] O2 Sat by Pulse 99 99 Oximetry 04/21/20 04/21/20 04/21/20 12:25 12:30 12:35 Temperature Pulse Rate 99 H 93 H 91 H Respiratory Rate Blood Pressure Blood Pressure [Right] O2 Sat by Pulse 99 99 98 Oximetry 04/21/20 04/21/20 04/21/20 12:40 12:45 12:50 Temperature Pulse Rate 94 H 101 H 98 H Respiratory Rate Blood Pressure Blood Pressure [Right] O2 Sat by Pulse 98 97 98 Oximetry 04/21/20 04/21/20 04/21/20 12:53 12:55 13:00 Temperature 98.4 F Pulse Rate 93 H 91 H 100 H Respiratory 16 Rate Blood Pressure 140/74 Blood Pressure [Right] O2 Sat by Pulse 99 99 Oximetry 04/21/20 04/21/20 04/21/20 13:05 13:10 13:15 Temperature Pulse Rate 92 H 94 H 89 Respiratory Rate Blood Pressure Blood Pressure [Right] O2 Sat by Pulse 99 98 97 Oximetry 04/21/20 04/21/20 04/21/20 13:20 13:23 13:25 Temperature Pulse Rate 96 H 90 88 Respiratory Rate Blood Pressure 155/80 Blood Pressure [Right] O2 Sat by Pulse 98 98 Oximetry 04/21/20 04/21/20 04/21/20 13:30 13:35 13:40 Temperature Pulse Rate 88 88 89 Respiratory Rate Blood Pressure Blood Pressure [Right] O2 Sat by Pulse 98 97 97 Oximetry 04/21/20 04/21/20 04/21/20 13:45 13:50 13:54 Temperature Pulse Rate 87 89 86 Respiratory Rate Blood Pressure 183/95 Blood Pressure [Right] O2 Sat by Pulse 98 98 Oximetry 04/21/20 04/21/20 04/21/20 13:55 14:00 14:05 Temperature Pulse Rate 92 H 87 84 Respiratory Rate Blood Pressure Blood Pressure [Right] O2 Sat by Pulse 99 99 99 Oximetry 04/21/20 04/21/20 04/21/20 14:10 14:15 14:20 Temperature Pulse Rate 85 85 90 Respiratory Rate Blood Pressure Blood Pressure [Right] O2 Sat by Pulse 98 99 100 Oximetry 04/21/20 04/21/20 04/21/20 14:25 14:30 14:35 Temperature Pulse Rate 91 H 92 H 90 Respiratory Rate Blood Pressure 179/89 Blood Pressure [Right] O2 Sat by Pulse 99 97 97 Oximetry 04/21/20 04/21/20 04/21/20 14:40 14:45 14:50 Temperature Pulse Rate 86 86 86 Respiratory Rate Blood Pressure Blood Pressure [Right] O2 Sat by Pulse 98 98 99 Oximetry 04/21/20 04/21/20 04/21/20 14:51 14:54 14:55 Temperature Pulse Rate 86 90 92 H Respiratory Rate Blood Pressure 201/94 183/84 Blood Pressure [Right] O2 Sat by Pulse 98 Oximetry 04/21/20 04/21/20 04/21/20 15:00 15:05 15:10 Temperature Pulse Rate 92 H 93 H 84 Respiratory 19 Rate Blood Pressure Blood Pressure [Right] O2 Sat by Pulse 100 98 98 Oximetry 04/21/20 04/21/20 04/21/20 15:15 15:20 15:25 Temperature Pulse Rate 86 88 86 Respiratory Rate Blood Pressure 153/76 Blood Pressure [Right] O2 Sat by Pulse 98 99 95 Oximetry 04/21/20 04/21/20 04/21/20 15:30 15:35 15:40 Temperature Pulse Rate 87 90 85 Respiratory Rate Blood Pressure Blood Pressure [Right] O2 Sat by Pulse 97 99 97 Oximetry 04/21/20 04/21/20 04/21/20 15:45 15:50 15:55 Temperature Pulse Rate 86 86 92 H Respiratory Rate Blood Pressure 141/86 Blood Pressure [Right] O2 Sat by Pulse 97 98 100 Oximetry 04/21/20 04/21/20 04/21/20 16:00 16:05 16:10 Temperature Pulse Rate 92 H 92 H 84 Respiratory Rate Blood Pressure Blood Pressure [Right] O2 Sat by Pulse 99 98 99 Oximetry 04/21/20 04/21/20 04/21/20 16:15 16:20 16:23 Temperature Pulse Rate 96 H 92 H 86 Respiratory Rate Blood Pressure 179/88 Blood Pressure [Right] O2 Sat by Pulse 98 97 Oximetry 04/21/20 04/21/20 04/21/20 16:25 16:30 16:35 Temperature Pulse Rate 88 85 92 H Respiratory Rate Blood Pressure Blood Pressure [Right] O2 Sat by Pulse 99 98 99 Oximetry 04/21/20 04/21/20 04/21/20 16:40 16:45 16:49 Temperature Pulse Rate 98 H 89 90 Respiratory Rate Blood Pressure 191/91 Blood Pressure [Right] O2 Sat by Pulse 99 99 Oximetry 04/21/20 04/21/20 04/21/20 16:50 16:53 16:55 Temperature Pulse Rate 90 90 89 Respiratory Rate Blood Pressure 168/81 Blood Pressure [Right] O2 Sat by Pulse 100 99 Oximetry 04/21/20 04/21/20 04/21/20 17:00 17:05 17:10 Temperature Pulse Rate 91 H 91 H 87 Respiratory Rate Blood Pressure Blood Pressure [Right] O2 Sat by Pulse 99 99 98 Oximetry 04/21/20 04/21/20 04/21/20 17:15 17:20 17:23 Temperature Pulse Rate 90 100 H 93 H Respiratory Rate Blood Pressure 155/89 Blood Pressure [Right] O2 Sat by Pulse 96 99 Oximetry 04/21/20 04/21/20 04/21/20 17:25 17:30 17:35 Temperature Pulse Rate 90 110 H 89 Respiratory Rate Blood Pressure Blood Pressure [Right] O2 Sat by Pulse 96 98 97 Oximetry 04/21/20 04/21/20 04/21/20 17:40 17:45 17:47 Temperature Pulse Rate 91 H 90 93 H Respiratory Rate Blood Pressure Blood Pressure [Right] O2 Sat by Pulse 97 96 94 Oximetry 04/21/20 04/21/20 04/21/20 17:50 17:54 17:55 Temperature Pulse Rate 96 H 94 H 98 H Respiratory Rate Blood Pressure 171/90 Blood Pressure [Right] O2 Sat by Pulse 96 98 Oximetry 04/21/20 04/21/20 04/21/20 18:00 18:05 18:10 Temperature Pulse Rate 95 H 91 H 109 H Respiratory Rate Blood Pressure Blood Pressure [Right] O2 Sat by Pulse 99 99 98 Oximetry 04/21/20 04/21/20 04/21/20 18:15 18:20 18:24 Temperature Pulse Rate 90 87 89 Respiratory Rate Blood Pressure 171/91 Blood Pressure [Right] O2 Sat by Pulse 99 98 Oximetry 04/21/20 04/21/20 04/21/20 18:25 18:30 18:35 Temperature Pulse Rate 87 95 H 92 H Respiratory Rate Blood Pressure Blood Pressure [Right] O2 Sat by Pulse 98 98 99 Oximetry 04/21/20 04/21/20 04/21/20 18:40 18:45 18:47 Temperature Pulse Rate 94 H 93 H 90 Respiratory Rate Blood Pressure 171/91 Blood Pressure [Right] O2 Sat by Pulse 98 99 Oximetry 04/21/20 04/21/20 04/21/20 18:50 18:53 18:55 Temperature Pulse Rate 98 H 85 88 Respiratory Rate Blood Pressure 156/74 Blood Pressure [Right] O2 Sat by Pulse 98 98 Oximetry 04/21/20 04/21/20 04/21/20 19:00 19:01 19:05 Temperature Pulse Rate 91 H 89 91 H Respiratory Rate Blood Pressure 161/77 Blood Pressure [Right] O2 Sat by Pulse 98 98 Oximetry 04/21/20 04/21/20 04/21/20 19:10 19:15 19:20 Temperature Pulse Rate 98 H 96 H 92 H Respiratory Rate Blood Pressure Blood Pressure [Right] O2 Sat by Pulse 99 98 99 Oximetry 04/21/20 04/21/20 04/21/20 19:23 19:25 19:30 Temperature 98.7 F Pulse Rate 91 H 99 H 91 H Respiratory Rate Blood Pressure 147/83 Blood Pressure [Right] O2 Sat by Pulse 99 99 Oximetry 04/21/20 04/21/20 04/21/20 19:35 19:40 19:45 Temperature Pulse Rate 90 93 H 92 H Respiratory Rate Blood Pressure Blood Pressure [Right] O2 Sat by Pulse 97 97 99 Oximetry 04/21/20 04/21/20 04/21/20 19:50 19:54 19:55 Temperature Pulse Rate 99 H 90 93 H Respiratory Rate Blood Pressure 160/86 Blood Pressure [Right] O2 Sat by Pulse 99 98 Oximetry 04/21/20 04/21/20 04/21/20 20:00 20:04 20:05 Temperature Pulse Rate 92 H 96 H 96 H Respiratory Rate Blood Pressure 163/84 Blood Pressure [Right] O2 Sat by Pulse 99 99 Oximetry 04/21/20 04/21/20 04/21/20 20:10 20:15 20:37 Temperature Pulse Rate 94 H 99 H 99 H Respiratory Rate Blood Pressure 135/88 Blood Pressure [Right] O2 Sat by Pulse 99 99 Oximetry 04/21/20 04/21/20 04/21/20 20:49 20:50 20:52 Temperature Pulse Rate 98 H 94 H 98 H Respiratory Rate Blood Pressure 160/83 152/82 Blood Pressure [Right] O2 Sat by Pulse 98 Oximetry 04/21/20 04/21/20 04/21/20 20:55 20:58 21:00 Temperature Pulse Rate 98 H 96 H 94 H Respiratory Rate Blood Pressure 163/87 Blood Pressure [Right] O2 Sat by Pulse 96 98 Oximetry 04/21/20 04/21/20 04/21/20 21:02 21:05 21:07 Temperature Pulse Rate 97 H 101 H 93 H Respiratory Rate Blood Pressure 151/84 160/89 Blood Pressure [Right] O2 Sat by Pulse 97 Oximetry 04/21/20 04/21/20 04/21/20 21:10 21:12 21:15 Temperature Pulse Rate 93 H 93 H 96 H Respiratory Rate Blood Pressure 145/76 Blood Pressure [Right] O2 Sat by Pulse 99 99 Oximetry 04/21/20 04/21/20 04/21/20 21:17 21:20 21:22 Temperature Pulse Rate 103 H 90 88 Respiratory Rate Blood Pressure 149/69 150/75 Blood Pressure [Right] O2 Sat by Pulse 98 Oximetry 04/21/20 04/21/20 04/21/20 21:24 21:25 21:27 Temperature Pulse Rate 86 93 H 88 Respiratory Rate Blood Pressure 145/77 148/82 Blood Pressure 145/77 [Right] O2 Sat by Pulse 98 Oximetry 04/21/20 04/21/20 04/21/20 21:28 21:30 21:32 Temperature Pulse Rate 100 H 95 H 92 H Respiratory Rate Blood Pressure 148/82 150/84 Blood Pressure [Right] O2 Sat by Pulse 100 Oximetry - Exam Lungs: Normal air movement Cervical Dilatation: 4.5 - Labs Labs: Abnormal Labs 04/20/20 04/20/20 04/21/20 16:51 16:51 00:08 MCV 77 L MCH 25 L RDW 16.6 H Creatinine 0.4 L Magnesium 2.60 H Lactate Dehydrogenase 214 H 04/21/20 04/21/20 04/21/20 05:44 12:00 17:04 MCV MCH RDW Creatinine Magnesium 2.70 H 3.00 H 3.00 H Lactate Dehydrogenase Laboratory Results - last 24 hr 04/21/20 04/21/20 04/21/20 00:08 05:44 09:45 Magnesium 2.60 H 2.70 H Coronavirus (PCR) Negative 04/21/20 04/21/20 12:00 17:04 Magnesium 3.00 H 3.00 H Coronavirus (PCR)
[2020-04-21] MEDS ORDERED: DEXMEDETOMIDINE 200 MCG/2 ML VIAL IV ONE (21:48)
[2020-04-21] MEDS ORDERED: ONDANSETRON 4 MG/2 ML INJ ONE (21:57)
[2020-04-21] MEDS ORDERED: KETOROLAC 30 MG/1 ML INJ ONE (21:57)
--- NOTE | 2020-04-21 21:58 | Ultrasound Report ---
Limited obstetrical ultrasound INDICATION: 34 week 6 day , position evaluation Limited images show the fetus in a breech presentation. Placenta is not seen near cervix. Signer Name: Raffaele Aguirre MD Signed: 04/21/2020 9:54 PM Workstation Name: [id number]
[2020-04-21] MEDS ORDERED: FAMOTIDINE 20 MG/2 ML INJ IV ONE (22:00)
[2020-04-21] MEDS ORDERED: BICITRA ORAL LIQD 30ML PO ONE (22:00)
[2020-04-21] MEDS ORDERED: METOCLOPRAMIDE 10 MG/2 ML INJ IV ONE (22:00)
[2020-04-21] MEDS ORDERED: OXYTOCIN 10 UNIT/1 ML INJ ONE (22:12)
[2020-04-21] MEDS ORDERED: ePHEDrine SULFATE 50 MG/1 ML INJ ONE (22:12)
--- NOTE | 2020-04-21 22:14 | Anesthesia Day of Surgery ---
Anesthesia Day of Surgery - Day of Surgery Patient Examined: Yes Patient H&P Reviewed: Yes Patient is NPO: Yes Beta Blockers: No Cardiac Clearance: No Pulmonary Clearance: No Ye's Test: N/A
--- NOTE | 2020-04-21 22:23 | Event Note ---
Date: 04/21/20 Discussed with the patient the indication for after delivery. Patient informed the risks of the surgery include bleeding possibly bleeding heavy enough to require blood transfusion, infection possible damage to bowel bladder ureter. All questions answered. Patient agrees to proceed. Patient desires permanent sterilization. She declined temporary contraceptives. She understands that this surgery would make her permanently sterile. She also understands the approximate 1% failure rate. The patient understands all the above and desires to proceed.
[2020-04-21] MEDS ORDERED: WATER FOR IRRIG STERILE 1,500 ML BOTTLE IR ONE (22:40)
[2020-04-21] MEDS ORDERED: SODIUM CHLORIDE 0.9% IRR 1,500 ML BOTTLE IR ONE (22:40)
[2020-04-21] MEDS ORDERED: SUCCINYLCHOLINE CHLORIDE 200 MG/10 ML INJ MDV ONE (22:50)
[2020-04-21] MEDS ORDERED: propofoL 200 MG/20 ML VIAL IV ONE (22:50)
[2020-04-21] MEDS ORDERED: LIDOCAINE 2%/EPINEPHRINE 1:200,000 VIAL (20 ML) INFILTRATI ONE (23:04)
[2020-04-21] MEDS ORDERED: ONDANSETRON 4 MG/2 ML INJ IV PRN (23:10)
[2020-04-21] MEDS ORDERED: NalbUPHINE 10 MG/1 ML INJ IV PRN (23:10)
[2020-04-21] MEDS ORDERED: diphenhydrAMINE 50 MG/ML VIAL IV PRN (23:10)
[2020-04-21] MEDS ORDERED: NALOXONE 0.4 MG/1 ML INJ IV PRN (23:10)
[2020-04-21] MEDS ORDERED: HYDROmorphone 1 MG/1 ML INJ IV PRN (23:10)
[2020-04-21] MEDS ORDERED: PROMETHAZINE 25 MG RECT SUPP PR PRN (23:10)
[2020-04-21] MEDS ORDERED: PROMETHAZINE 25 MG TAB PO PRN (23:10)
--- NOTE | 2020-04-21 23:14 | Progress Note ---
Spinal Anesthesia Block - Spinal Anesthesia Block Start Time: 20:14 Stop Time: 20:24 Performed by:: JEREMIAS GALARZA (Marie SHULTZ) Procedure: CSE is being performed for C/S. H&P, labs were reviewed. All questions and concerns were answered. Informed consent was obtained. Timeout performed. Patient in sitting position on side of bed. Sterile prep and drape was performed. 3 mL 1% lidocaine skin wheal at L [3]-L [4]. 18-gauge Touhy epidural needle advanced to [id number] using air technique, [8cm]. 27- gauge spinal needle advanced, positive free-flowing CSF. Spinal dose of [Marcaine 12mg and Precedex 10mcg]. Epidural catheter advanced to [10] cm, would not advance further. Sterile dressing applied, and patient placed supine. [-] Aspiration, [-] test dose. Patient tolerated procedure well.
--- NOTE | 2020-04-22 00:08 | Operative Report ---
Operative Report Operative Report: Date of procedure: April 21, 2020 Pre-operative diagnosis: Intrauterine at 35 weeks with severe preeclampsia,unstable lie now in breech presentation, body mass index of 46, leiomyoma and desires permanent sterilization Post-operative diagnosis: Same plus leiomyomata Procedure name(s): Primary low transverse section with bilateral tubal ligation modified Ria type Surgeon: Kennedy Antoine MD Clothing Sorter: Jessi Alexander, certified nurse road cleaner Anesthesia: General anesthesia EBL: 1000 cc Complications: None Findings: Patient with uterus with multiple leiomyomata largest approximately 7 to 8 cm in diameter 1 located anteriorly and near the lower uterine segment causing difficulty in delivering the after coming head. Normal fallopian tubes bilaterally. Female weight 4 pounds 8 ounces Apgars 3 at 1 minute and 7 at 5 minutes Specimen(s): Placenta and portion of the left and right fallopian tubes Procedure: The patient was brought to the operating room. A spinal was placed without any complications. She was then placed in left lateral tilt. Prepped and draped in the usual sterile manner. After failing testing for adequate anesthesia level, decision had to be made to do the surgery under general anesthesia. Patient was then intubated without difficulty. A Pfannenstiel incision was made with a scalpel. This incision was taken down to the fascia. The fascia was then nicked in the midline. This incision was extended out laterally with Simon scissors. The fascia was then sharply and bluntly from the underlying rectus muscles. The rectus muscles were bluntly and sharply . The peritoneum was then entered with the crew boat operator's fingers. This incision was spread vertically with care not to damage the bladder below. The Rashid self-retaining tractor was then placed without any difficulty. The chip dder flap was then formed sharply and bluntly with Metzenbaum scissors. A transverse incision was made in lower uterine segment. This incision was extended laterally with the operators fingers. The amniotic sac was then entered bluntly with the crew boat operator's fingers. The infant was delivered from the breech position. Both of feet are present through hysterostomy and pulled through the incision. The breech was then delivered wrapped with a wet towel continue delivering the torso sweeping around each shoulder flexing each upper extremity and removing the through the incision. And delivery and after coming head did flex neck and delivered the nose and mouth but had difficulty and delivering the occipital lobe. Extension of the uterine incision had been made around the lower segment myoma therefore free in the occipital. The was bulb suction on the mother's abdomen. Cord was double clamped and cut. The was then passed to the nursery personnel who were in attendance. The above scores were given by the nursery personnel. The placenta was then bluntly removed. The uterus could not be externalized due to the large myomas present, the uterine incision with close intra-abdominally. The uterus was wiped clean of any remaining products. The uterine incision was closed in layers. The first incision was closed in a locking manner using 0 Vicryl. This was followed by imbricating stitch also with 0 Vicryl. Attention was then switched to the patient's fallopian tubes which could be visualized and by rotating the patient's uterus.. Each fallopian tube was identified by its fimbriated end. A portion of each tube was grabbed with the Whitmire clamp approximately 2-3 cm from the cornua. Each loop was double ligated with 2-0 chromic suture. The loop were cut with Metzenbaum scissors. Each stump was found to be hemostatic and cauterized with the Bovie. Attention was then switched back to the uterine closure. This closure was hemostatic. The bladder flap was copiously irrigated and found to be hemostatic. The pelvis was copiously irrigated and found to be hemostatic. The retractors were removed. The rectus muscles were inspected and found to be hemostatic. The fascia was then closed in a running manner using 0 Vicryl. This incision was hemostatic irrigation Bovie. The skin was reapproximated with 4-0 Vicryl subcuticularly. The patient tolerated procedure well. Her urine was clear. The was admitted to the nursery. The patient was accompanied to recovery room in good condition. Instrument count correct x3.
[2020-04-22] MEDS: MORPHINE 4 MG/1 ML INJ IV PRN ×2 (00:40→01:52)
--- NOTE | 2020-04-22 06:40 | Progress Note ---
Assessment and Plan lochia small, pain managed with IV pain medications, incision dressing D&I, tolerating clear liquid diet, no flatus at present, sotelo draining bedside, I&O's adequate - Patient Problems (1) Pre-eclampsia superimposed on chronic hypertension Onset Date: ~04/20/20 Current Visit: Yes Status: Acute Plan to address problem: Magnesium Sulfate until 24hrs post delivery increase Labetalol PO to 300mg BID continue monitoring for signs of worsening Pre-E. (2) delivery indicated due to breech presentation Onset Date: ~04/20/20 Current Visit: Yes Status: Acute Plan to address problem: continue Postop pathway Subjective - Subjective Date of service: 04/22/20 Principal diagnosis: S/P Primary Section 1)CHTN 2)superimposed pre E 3)Obesity Patient reports: appetite normal, no flatus, no nauseated : doing well, in NICU Objective - Vital Signs Latest vital signs: Vital Signs Temp Pulse Resp BP BP Pulse Ox 04/22/20 06:34 89 98 04/22/20 06:29 86 97 04/22/20 06:28 86 142/77 94 04/22/20 06:24 92 H 97 04/22/20 06:19 91 H 99 04/22/20 06:14 87 99 04/22/20 06:09 86 97 04/22/20 06:04 86 97 04/22/20 05:59 90 97 04/22/20 05:58 85 151/78 04/22/20 05:54 90 97 04/22/20 05:49 85 98 04/22/20 05:44 86 97 04/22/20 05:39 87 99 04/22/20 05:34 90 98 04/22/20 05:30 18 04/22/20 05:29 84 97 04/22/20 05:28 83 168/88 94 04/22/20 05:24 90 96 04/22/20 05:19 86 96 04/22/20 05:14 90 97 04/22/20 05:09 88 97 04/22/20 05:04 86 97 04/22/20 04:59 86 97 04/22/20 04:58 84 159/85 04/22/20 04:54 87 97 04/22/20 04:49 88 96 04/22/20 04:44 88 97 04/22/20 04:39 87 98 04/22/20 04:37 97 H 94 04/22/20 04:35 18 04/22/20 04:34 89 96 04/22/20 04:29 88 96 04/22/20 04:28 87 161/84 94 04/22/20 04:24 89 96 04/22/20 04:19 88 97 04/22/20 04:14 91 H 94 04/22/20 04:10 91 H 94 04/22/20 04:09 90 95 04/22/20 04:05 92 H 94 04/22/20 04:04 90 95 04/22/20 04:00 91 H 94 04/22/20 03:59 90 94 04/22/20 03:57 88 165/83 04/22/20 03:54 92 H 94 04/22/20 03:49 92 H 94 04/22/20 03:48 92 H 94 04/22/20 03:44 90 168/87 95 04/22/20 03:42 79 94 04/22/20 03:39 89 97 04/22/20 03:36 94 H 94 04/22/20 03:35 18 04/22/20 03:34 93 H 96 04/22/20 03:32 98 H 173/89 04/22/20 03:30 90 173/89 04/22/20 03:29 93 H 96 04/22/20 03:28 90 178/90 94 04/22/20 03:24 91 H 96 04/22/20 03:19 94 H 95 04/22/20 03:14 92 H 96 04/22/20 03:09 96 H 95 04/22/20 03:04 93 H 96 04/22/20 03:02 93 H 93 04/22/20 02:59 95 H 98 04/22/20 02:58 93 H 170/90 04/22/20 02:54 95 H 96 04/22/20 02:52 100 H 94 04/22/20 02:49 94 H 96 04/22/20 02:47 91 H 93 04/22/20 02:44 97 H 98 04/22/20 02:39 90 99 04/22/20 02:34 92 H 98 04/22/20 02:33 95 H 94 04/22/20 02:29 96 H 98 04/22/20 02:28 94 H 190/88 04/22/20 02:24 96 H 97 04/22/20 02:19 92 H 99 04/22/20 02:14 93 H 97 04/22/20 02:10 95 H 94 04/22/20 02:09 94 H 96 04/22/20 02:04 92 H 96 04/22/20 02:03 94 H 92 04/22/20 01:59 90 175/93 04/22/20 01:58 91 H 194/97 04/22/20 01:30 18 99 04/22/20 01:26 96 H 174/97 04/22/20 01:10 98.3 F 91 H 17 155/97 99 04/22/20 00:55 84 22 159/91 100 04/22/20 00:40 92 H 14 147/85 100 04/22/20 00:25 93 H 17 149/91 100 04/22/20 00:20 100 H 16 124/72 100 04/22/20 00:15 99 H 18 137/86 100 04/22/20 00:10 98.6 F 105 H 22 130/84 100 04/21/20 22:07 90 144/68 04/21/20 22:04 92 H 142/66 04/21/20 21:57 93 H 160/82 04/21/20 21:53 96 H 191/96 04/21/20 21:47 94 H 166/90 04/21/20 21:45 91 H 99 04/21/20 21:44 100 H 178/98 04/21/20 21:40 95 H 100 04/21/20 21:37 92 H 156/93 04/21/20 21:35 96 H 99 04/21/20 21:32 92 H 150/84 04/21/20 21:30 95 H 18 100 04/21/20 21:27 88 148/82 145/77 04/21/20 21:25 93 H 98 04/21/20 21:24 86 145/77 04/21/20 21:22 88 150/75 04/21/20 21:20 90 98 04/21/20 21:17 103 H 149/69 04/21/20 21:15 96 H 99 04/21/20 21:12 93 H 145/76 04/21/20 21:10 93 H 99 04/21/20 21:07 93 H 160/89 04/21/20 21:05 101 H 97 04/21/20 21:02 97 H 151/84 04/21/20 21:00 94 H 98 04/21/20 20:58 96 H 163/87 04/21/20 20:55 98 H 96 04/21/20 20:52 98 H 152/82 04/21/20 20:50 94 H 98 04/21/20 20:49 98 H 160/83 04/21/20 20:37 99 H 135/88 04/21/20 20:15 99 H 99 04/21/20 20:10 94 H 99 04/21/20 20:05 96 H 99 04/21/20 20:04 96 H 163/84 04/21/20 20:00 92 H 99 04/21/20 19:55 93 H 98 04/21/20 19:54 90 160/86 04/21/20 19:50 99 H 99 04/21/20 19:45 92 H 99 04/21/20 19:40 93 H 97 04/21/20 19:35 90 97 04/21/20 19:30 98.7 F 91 H 20 98 04/21/20 19:25 99 H 99 04/21/20 19:23 91 H 147/83 04/21/20 19:20 92 H 99 04/21/20 19:15 96 H 98 04/21/20 19:10 98 H 99 04/21/20 19:05 91 H 98 04/21/20 19:01 89 161/77 04/21/20 19:00 91 H 98 04/21/20 18:55 88 98 04/21/20 18:53 85 156/74 04/21/20 18:50 98 H 98 04/21/20 18:47 90 171/91 04/21/20 18:45 93 H 99 04/21/20 18:40 94 H 98 04/21/20 18:35 92 H 99 04/21/20 18:30 95 H 98 04/21/20 18:25 87 98 04/21/20 18:24 89 171/91 04/21/20 18:20 87 98 04/21/20 18:15 90 99 04/21/20 18:10 109 H 98 04/21/20 18:05 91 H 99 04/21/20 18:00 95 H 99 04/21/20 17:55 98 H 98 04/21/20 17:54 94 H 171/90 04/21/20 17:50 96 H 96 04/21/20 17:47 93 H 94 04/21/20 17:45 90 96 04/21/20 17:40 91 H 97 04/21/20 17:35 89 97 04/21/20 17:30 110 H 98 04/21/20 17:25 90 96 04/21/20 17:23 93 H 155/89 04/21/20 17:20 100 H 99 04/21/20 17:15 90 96 04/21/20 17:10 87 98 04/21/20 17:05 91 H 99 04/21/20 17:00 91 H 99 04/21/20 16:55 89 99 04/21/20 16:53 90 168/81 04/21/20 16:50 90 100 04/21/20 16:49 90 191/91 04/21/20 16:45 89 99 04/21/20 16:40 98 H 99 04/21/20 16:35 92 H 99 04/21/20 16:30 85 98 04/21/20 16:25 88 99 04/21/20 16:23 86 179/88 04/21/20 16:20 92 H 97 04/21/20 16:15 96 H 98 04/21/20 16:10 84 99 04/21/20 16:05 92 H 98 04/21/20 16:00 92 H 99 04/21/20 15:55 92 H 141/86 100 04/21/20 15:50 86 98 04/21/20 15:45 86 97 04/21/20 15:40 85 97 04/21/20 15:35 90 99 04/21/20 15:30 87 97 04/21/20 15:25 86 153/76 95 04/21/20 15:20 88 99 04/21/20 15:15 86 98 04/21/20 15:10 84 98 04/21/20 15:05 93 H 98 04/21/20 15:00 92 H 19 100 04/21/20 14:55 92 H 98 04/21/20 14:54 90 183/84 04/21/20 14:51 86 201/94 04/21/20 14:50 86 99 04/21/20 14:45 86 98 04/21/20 14:40 86 98 04/21/20 14:35 90 97 04/21/20 14:30 92 H 97 04/21/20 14:25 91 H 179/89 99 04/21/20 14:20 90 100 04/21/20 14:15 85 99 04/21/20 14:10 85 98 04/21/20 14:05 84 99 04/21/20 14:00 87 99 04/21/20 13:55 92 H 99 04/21/20 13:54 86 183/95 04/21/20 13:50 89 98 04/21/20 13:45 87 98 04/21/20 13:40 89 97 04/21/20 13:35 88 97 04/21/20 13:30 88 98 04/21/20 13:25 88 98 04/21/20 13:23 90 155/80 04/21/20 13:20 96 H 98 04/21/20 13:15 89 97 04/21/20 13:10 94 H 98 04/21/20 13:05 92 H 99 04/21/20 13:00 98.4 F 100 H 16 99 04/21/20 12:55 91 H 99 04/21/20 12:53 93 H 140/74 04/21/20 12:50 98 H 98 04/21/20 12:45 101 H 97 04/21/20 12:40 94 H 98 04/21/20 12:35 91 H 98 04/21/20 12:30 93 H 99 04/21/20 12:25 99 H 99 04/21/20 12:23 97 H 159/69 04/21/20 12:20 95 H 99 04/21/20 12:15 94 H 99 04/21/20 12:10 88 100 04/21/20 12:05 86 98 04/21/20 12:00 86 99 04/21/20 11:55 86 98 04/21/20 11:53 86 193/92 04/21/20 11:50 85 99 04/21/20 11:45 100 H 98 04/21/20 11:40 93 H 98 04/21/20 11:35 98 H 99 04/21/20 11:30 89 97 04/21/20 11:25 89 96 04/21/20 11:23 87 177/85 94 04/21/20 11:20 86 98 04/21/20 11:15 86 98 04/21/20 11:10 94 H 97 04/21/20 11:05 88 97 04/21/20 11:00 86 20 99 04/21/20 10:55 95 H 98 04/21/20 10:53 87 174/86 04/21/20 10:50 97 H 98 04/21/20 10:47 89 180/78 04/21/20 10:45 83 99 04/21/20 10:40 84 99 04/21/20 10:35 91 H 99 04/21/20 10:30 80 180/78 99 04/21/20 10:25 99 H 99 04/21/20 10:24 93 H 180/78 04/21/20 10:20 95 H 100 04/21/20 10:15 90 100 04/21/20 10:10 90 99 04/21/20 10:05 86 99 04/21/20 10:00 92 H 99 04/21/20 09:56 93 H 164/76 04/21/20 09:55 97 H 99 04/21/20 09:54 88 193/106 04/21/20 09:50 93 H 99 04/21/20 09:45 90 99 04/21/20 09:40 94 H 98 04/21/20 09:36 98.0 F 04/21/20 09:35 90 98 04/21/20 09:30 93 H 100 04/21/20 09:25 94 H 97 04/21/20 09:20 93 H 99 04/21/20 09:18 90 134/67 04/21/20 09:16 108 H 94 04/21/20 09:15 106 H 94 04/21/20 09:10 87 95 04/21/20 09:05 101 H 98 04/21/20 09:03 85 150/73 04/21/20 09:00 95 H 18 100 04/21/20 08:55 111 H 99 04/21/20 08:50 88 97 04/21/20 08:48 85 151/76 04/21/20 08:45 89 97 04/21/20 08:40 87 97 04/21/20 08:35 92 H 98 04/21/20 08:33 83 148/81 04/21/20 08:30 92 H 94 04/21/20 08:25 89 97 04/21/20 08:20 90 97 04/21/20 08:19 90 143/84 04/21/20 08:15 89 97 04/21/20 08:10 95 H 98 04/21/20 08:05 87 99 04/21/20 08:03 94 H 147/76 04/21/20 08:00 97 H 98 04/21/20 07:55 91 H 99 04/21/20 07:50 95 H 98 04/21/20 07:49 89 162/89 04/21/20 07:45 91 H 98 04/21/20 07:40 95 H 100 04/21/20 07:38 98.3 F 91 H 18 162/89 100 04/21/20 07:37 85 151/73 04/21/20 07:35 94 H 100 04/21/20 07:34 95 H 184/89 04/21/20 07:30 88 99 04/21/20 07:25 86 99 04/21/20 07:20 89 98 04/21/20 07:19 88 151/81 94 04/21/20 07:15 87 100 04/21/20 07:10 101 H 99 04/21/20 07:05 88 164/92 98 04/21/20 07:00 88 100 04/21/20 06:55 92 H 99 04/21/20 06:50 77 180/78 98 04/21/20 06:45 87 98 04/21/20 06:40 86 98 Intake and Output 04/21/20 04/21/20 04/22/20 15:59 23:59 07:59 Intake Total 6.067 3000 Output Total 1408 1633 Balance -6778.393 4457 Intake: IV 6.067 3000 Lactated Ringers 1,000 ml 1000 @ 125 mls/hr IV DIRECT BANG Rx#:[id number] PITOCin/NS 30 UNIT/500ML 6.067 30 units In 500 ml @ 4 mls/hr IV TITR BANG Rx#: [id number] Output: Urine 1408 1633 Indwelling Catheter 1408 1633 Other: Total, Output Amount 133 500 Estimated Blood Loss 1,000 - Exam Breasts: Present: deferred Cardiovascular: Present: Regular rate Abdomen: Present: normal appearance, soft, tenderness Uterus: Present: firm Extremities: Present: normal Deep Tendon Reflex Grade: Normal +2 Incision: Present: dry, intact, dressed - Labs Labs: Abnormal lab results 04/21/20 04/21/20 Range/Units 12:00 17:04 Magnesium 3.00 H 3.00 H (1.7-2.3) mg/dL
[2020-04-22] MEDS: HYDROmorphone 1 MG/1 ML INJ IV PRN ×2 (06:53→16:07)
[2020-04-22] MEDS ORDERED: SIMETHICONE 80 MG CHEW TAB PO PRN (07:17)
[2020-04-22] MEDS ORDERED: WITCH HAZEL/ GLYCERIN PAD TP PRN (07:17)
[2020-04-22] MEDS ORDERED: LANOLIN/ZINC/DIMETHICONE (LANSINOH) 7 GM TP PRN (07:17)
[2020-04-22] MEDS ORDERED: NALOXONE 0.4 MG/1 ML INJ IV PRN (07:17)
[2020-04-22] MEDS ORDERED: MAGNESIUM HYDROXIDE (MOM) ORAL LIQD UDC PO PRN (07:17)
[2020-04-22] MEDS ORDERED: OXYTOCIN 20 UNIT/1000ML DRIP 20 UNITS/1,000 ML BAG IV SCH (07:17)
[2020-04-22] MEDS ORDERED: MAGNESIUM SULFATE 40GM/1000ML 40 GM/1,000 ML BAG IV SCH (07:17)
[2020-04-22] MEDS ORDERED: KETOROLAC 30 MG/1 ML INJ IV PRN (07:17)
[2020-04-22] MEDS ORDERED: LACTATED RINGERS 1,000 ML ONE ×2 (07:53→21:06)
[2020-04-22] MEDS: ceFAZolin/NS 1 GM/50 ML 1 GM/50 ML BAG IV SCH ×2 (08:11→22:04)
[2020-04-22] MEDS: HYDROcodone/ACETAMINOPHEN 5-325 MG TAB PO PRN ×3 (10:15→22:08)
[2020-04-22] MEDS: FERROUS SULFATE 325 MG TAB PO SCH (10:24)
[2020-04-22] MEDS: PRENATAL VIT27-FE FUMARATE-FOLIC ACID VIT TAB PO SCH (10:25)
--- NOTE | 2020-04-22 13:29 | Post Anesthesia Evaluation ---
- Post Anesthesia Evaluation Patient Participated: Yes Airway Patent: Yes Stable Respiratory Function: Yes Nausea/Vomiting: No Temp > 96.8F: Yes Pain Manageable: Yes Adequeate Hydration: Yes Anesthesia Complications: No Block Receding Appropriately: Yes Patient on Ventilator: No
[2020-04-22 16:04] LABS: Hematocrit 33.7 % (30.3-42.9); Hemoglobin 10.8 gm/dl (10.1-14.3)
[2020-04-22] MEDS: IBUPROFEN 800 MG TAB PO PRN (21:27)
[2020-04-22] MEDS: LACTATED RINGERS 1,000 ML IV SCH (21:28)
[2020-04-23] MEDS: HYDROcodone/ACETAMINOPHEN 5-325 MG TAB PO PRN ×2 (04:05→12:11)
[2020-04-23] MEDS: IBUPROFEN 800 MG TAB PO PRN ×2 (05:55→17:48)
--- NOTE | 2020-04-23 06:21 | Discharge Summary ---
Providers - Providers Date of Admission: 04/20/20 16:51 Date of discharge: 04/23/20 (pt desires d/c home this evening if stable. She is aware the baby may not go for a few days.) Attending physician: ABY JEFFERSON Primary care physician: ABY JEFFERSON Hospitalization Reason for admission: IUP - Delivery: Procedure: primary low transverse (breech) Episiotomy: none Laceration: none Incision: normal, dry, intact Other procedures: none complications: other (MGSO4 X 24hours) Discharge diagnosis: delivery baby: female Hospital course: uncomplicated primary section with tubal. BREECH Pt A&O X3 BP 140-130/70-60 Denies HICKS, blurred vision chest pain. FF below umb Lochia scant Incision D&I H&H stable No s/sx of anemia. Doing well s/p c/s; PreE. P: d/c today with instructions RTO 1 week postop and BP check. RX provided @ d/c Condition at discharge: Good Disposition: DC-01 TO HOME OR SELFCARE - Discharge Diagnoses (1) delivery indicated due to breech presentation Status: Acute Comment: RTO 1 week postop (2) Pre-eclampsia superimposed on chronic hypertension Status: Acute Comment: B P check in 1 week. RX Labtalol Plan - Provider Discharge Summary Activity: routine, no sex for 6 weeks, no heavy lifting 4 weeks, no strenuous exercise Diet: routine Instructions: routine Additional instructions: [] Smoking cessation referral if applicable(refer to patient education folder for contact #) [] Refer to [facility]'s [facility] Booklet Call your doctor immediately for: * Fever > 100.5 * Heavy vaginal bleeding ( >1 pad per hour) * Severe persistent headache * Shortness of breath * Reddened, hot, painful area to leg or breast * Drainage or odor from incision. * Keep incision clean and dry at all times and follow doctor's instructions regarding bathing/showering - Follow up plan Follow up: ABY JEFFERSON MD [Primary Care Provider] - 7 Days (Congratulations! Please call [phone] to schedule your postoperative appointment in 1 week. Call with headache not relieved with Tylenol, blurred vision, chest pain. Take your blood pressure at home. Notify the office if 160/105 of greater. Take medications as prescribed. You should not drive while taking any prescription medications for pain. Showers only no tub baths. Keep incision clean and dry. Call with any concerns.)
[2020-04-23] MEDS ORDERED: DIPHtheria,PERTUSSIS(ACELL),TETANUS VACCINE/PF 0.5 ML VIAL IM ONE (08:00)
[2020-04-23] MEDS: PRENATAL VIT27-FE FUMARATE-FOLIC ACID VIT TAB PO SCH (10:56)
[2020-04-23 15:08] VITALS: BP 139/76
[2020-04-23] MEDS: FERROUS SULFATE 325 MG TAB PO SCH (16:14)
== END 2020-04-23 18:00 | disposition home or self-care (01) | DRG 765 ==
LOC: TRG 16:21 → APU 16:21 → TRG 16:51 → APU 16:51 → LD 20:15 → OB 04-23 03:23
PROVIDERS: ADMIT Obstetrics & Gynecology; ATTEND Obstetrics & Gynecology
PROC: 10D00Z1 Extraction of Products of Conception, Low, Open Approach (ICD-10-PCS; principal; 2020-04-21)
PROC: 0UB70ZZ Excision of Bilateral Fallopian Tubes, Open Approach (ICD-10-PCS; 2020-04-21)
PROC: 3E0234Z Introduction of Serum, Toxoid and Vaccine into Muscle, Percutaneous Approach (ICD-10-PCS; 2020-04-23)
DX: O11.4 Pre-existing hypertension with pre-eclampsia, complicating childbirth (principal); O36.5930 Maternal care for other known or suspected poor fetal growth, third trimester, not applicable or unspecified; O32.1XX0 Maternal care for breech presentation, not applicable or unspecified; O99.02 Anemia complicating childbirth; O34.13 Maternal care for benign tumor of corpus uteri, third trimester; D25.9 Leiomyoma of uterus, unspecified; O32.0XX0 Maternal care for unstable lie, not applicable or unspecified; O99.52 Diseases of the respiratory system complicating childbirth; J45.909 Unspecified asthma, uncomplicated; O99.62 Diseases of the digestive system complicating childbirth; K21.9 Gastro-esophageal reflux disease without esophagitis; Z37.0 Single live birth; Z3A.34 34 weeks gestation of pregnancy; Z20.828 Contact with and (suspected) exposure to other viral communicable diseases; O99.214 Obesity complicating childbirth; E66.9 Obesity, unspecified
CPT/HCPCS: 36415; 76815; 81001; 82565; 83615; 83735; 84450; 84460; 84550; 85014; 85018; 85027; 86592; 86850; 86900; 86901; 90715; G0378; J0290; J0330; J0690; J1170; J1200; J1885; J2270; J2405; J2590; J2704; J2765; J3010; J3475; J3490; J7120; U0003-CS